=== PATIENT | male | born 1970 | race Caucasian/White ===

== ENCOUNTER 2016-09-11 09:47 | Emergency (ER) | payer MEDICARE ==
[2016-09-11] MEDS ORDERED: SODIUM CHLORIDE 0.9% 1,000 ML IV STA (10:25)
--- NOTE | 2016-09-11 10:26 | ED ---
General Adult HPI - General Chief complaint: Abdominal Pain Stated complaint: LOW O2, BULGE ON LEFT SIDE OF STOMACH Time Seen by Provider: 09/11/16 10:19 Source: patient, RN notes reviewed Mode of arrival: ambulatory Limitations: no limitations - History of Present Illness Initial comments: Patient 46-year-old male who presents emergency room today with chief complaint of left-sided abdominal pain over the last 3 weeks. He does admit to a constant "pressure" to left lower quadrant. Patient states he feels more when he try to go to the bathroom. He does admit to a history of constipation due to opiates. He states he no longer takes opiates but does medical marijuana. She has not had a problem with constipation since. States he feels some of the symptoms are similar. He states he has had bowel movements but feels like he is maybe not completely emptying. He admits that he felt nauseous 2 days ago. He denies any other complaints or symptoms. Patient denies any recent fever, chills, shortness of breath, chest pain, vomiting, numbness or tingling, dysuria or hematuria, constipation or diarrhea, headaches or visual changes, or any other complaints. - Related Data Home Medications Medication Instructions Recorded Confirmed No Known Home Medications [No 09/11/16 09/11/16 Known Home Medications] Allergies Allergy/AdvReac Type Severity Reaction Status Date / Time No Known Allergies Allergy Verified 09/11/16 10:57 Review of Systems ROS Statement: Those systems with pertinent positive or pertinent negative responses have been documented in the HPI. ROS Other: All systems not noted in ROS Statement are negative. Past Medical History Additional Past Medical History / Comment(s): medical marijuana for sciatic nerve damage History of Any Multi-Drug Resistant Organisms: None Reported Additional Past Surgical History / Comment(s): spine stimulator, nerve damage Past Psychological History: No Psychological Hx Reported Smoking Status: Current every day smoker Past Alcohol Use History: None Reported Past Drug Use History: Marijuana General Exam - General Exam Comments Initial Comments: General: The patient is awake and alert, in no distress, and does not appear acutely ill. Eye: Pupils are equal, round and reactive to light, extra-ocular movements are intact. No nystagmus. There is normal conjunctiva bilaterally. No signs of icterus. Ears, nose, mouth and throat: There are moist mucous membranes and no oral lesions. Neck: The neck is supple, there is no tenderness or JVD. Cardiovascular: There is a regular rate and rhythm. No murmur, rub or gallop is appreciated. Respiratory: Lungs are clear to auscultation, respirations are non-labored, breath sounds are equal. No wheezes, stridor, rales, or rhonchi. Gastrointestinal: Soft, non-distended, non-tender abdomen without masses or organomegaly noted. There is no rebound or guarding present. No CVA tenderness. Bowel sounds are unremarkable. Musculoskeletal: Normal ROM, no tenderness. Strength 5/5. Sensation intact. Pulses equal bilaterally 2+. Neurological: A&O x 3. CN II-XII intact, There are no obvious motor or sensory deficits. Coordination appears grossly intact. Speech is normal. Skin: Skin is warm and dry and no rashes or lesions are noted. Psychiatric: Cooperative, appropriate mood & affect, normal judgment. Limitations: no limitations Course Vital Signs 09/11/16 09/11/16 09:58 11:11 Temperature 98.3 F 97.7 F Pulse Rate 76 93 Respiratory 20 18 Rate Blood Pressure 126/73 118/70 O2 Sat by Pulse 94 L 93 L Oximetry Medical Decision Making - Medical Decision Making Patient reexamined at this time shows no signs of distress. Patient's labs been reviewed mildly elevated white count 11,000. Remaining labs unremarkable. Patient resting comfortably. Abdomen is soft nontender. CT of the abdomen and pelvis performed does show a colitis. Patient will be discharged given family and GI to follow-up with. Advised return if any symptoms increase or any other concerns. - Lab Data Result diagrams: 09/11/16 10:50 09/11/16 10:50 Lab Results 09/11/16 09/11/16 09/11/16 Range/Units 10:50 10:50 10:50 WBC 11.9 H (3.8-10.6) k/uL RBC 4.79 (4.30-5.90) m/uL Hgb 15.2 (13.0-17.5) gm/dL Hct 43.7 (39.0-53.0) % MCV 91.2 (80.0-100.0) fL MCH 31.8 (25.0-35.0) pg MCHC 34.9 (31.0-37.0) g/dL RDW 12.7 (11.5-15.5) % Plt Count 267 (150-450) k/uL Neutrophils % 74 % Lymphocytes % 13 % Monocytes % 9 % Eosinophils % 1 % Basophils % 1 % Neutrophils # 8.8 H (1.3-7.7) k/uL Lymphocytes # 1.6 (1.0-4.8) k/uL Monocytes # 1.0 (0-1.0) k/uL Eosinophils # 0.1 (0-0.7) k/uL Basophils # 0.1 (0-0.2) k/uL Sodium 140 (137-145) mmol/L Potassium 3.8 (3.5-5.1) mmol/L Chloride 99 (98-107) mmol/L Carbon Dioxide 29 (22-30) mmol/L Anion Gap 12 mmol/L BUN 16 (9-20) mg/dL Creatinine 0.93 (0.66-1.25) mg/dL Est GFR (MDRD) Af Amer >60 (>60 ml/min/1.73 sqM) Est GFR (MDRD) Non-Af >60 (>60 ml/min/1.73 sqM) Glucose 95 (74-99) mg/dL Calcium 9.6 (8.4-10.2) mg/dL Total Bilirubin 1.0 (0.2-1.3) mg/dL AST 24 (17-59) U/L ALT 19 L (21-72) U/L Alkaline Phosphatase 66 (38-126) U/L Total Protein 8.3 H (6.3-8.2) g/dL Albumin 4.7 (3.5-5.0) g/dL Amylase 79 (30-110) U/L Lipase 40 (23-300) U/L Urine Color Yellow Urine Appearance Cloudy (Clear) Urine pH 5.5 (5.0-8.0) Ur Specific [place] 1.032 (1.001-1.035) Urine Protein 1+ H (Negative) Urine Glucose (UA) Negative (Negative) Urine Ketones Negative (Negative) Urine Blood Moderate H (Negative) Urine Nitrite Negative (Negative) Urine Bilirubin Negative (Negative) Urine Urobilinogen 2.0 (<2.0) mg/dL Ur Leukocyte Esterase Negative (Negative) Urine RBC 3 (0-5) /hpf Urine WBC 1 (0-5) /hpf Urine Bacteria Rare H (None) /hpf Urine Mucus Moderate H (None) /hpf Disposition Clinical Impression: Colitis Disposition: HOME SELF-CARE Condition: Good Instructions: Colitis (ED) Additional Instructions: Please use medication as discussed. Please follow-up with family doctor/GI in the next 2 days of symptoms have not improved. Please return to emergency room if the symptoms increase or worsen or for any other concerns. Referrals: None,Stated [Primary Care Provider] - 1-2 days Jesus Crow MD [STAFF PHYSICIAN] - 1-2 days Ester Johnson MD [REFERRING] - 1-2 days Raven Darden MD [STAFF PHYSICIAN] - 1-2 days Time of Disposition: 13:10
[2016-09-11 10:59] LABS: Appearance,Urine Cloudy (Clear); Bacteria,Urine Rare /hpf; Bilirubin,Urine Negative (Negative); Glucose,Urine (UA) Negative (Negative); Ketones,Urine Negative (Negative); Leukocyte Esterase,Urine Negative (Negative); Mucus,Urine Moderate /hpf; Nitrite,Urine Negative (Negative); PH, Urine 5.5 (5.0-8.0); Particle Count 14177; Protein,Urine 1+ (Negative); RBC,Urine 3 /hpf (0-5); Specific Gravity,Urine 1.032 (1.001-1.035); UA Billing (MACRO vs. MICRO) MICRO; WBC,Urine 1 /hpf (0-5)
[2016-09-11 11:01] LABS: Basophils # (A) 0.1 k/uL (0-0.2); Basophils % (A) 1 %; CH 31.2; CHCM 34.4; Eosinophils # (A) 0.1 k/uL (0-0.7); Eosinophils % (A) 1 %; HCT 43.7 % (39.0-53.0); HGB 15.2 gm/dL (13.0-17.5); Luc # (Auto) 0.34; Luc % (Auto) 3; Lymphocytes # (A) 1.6 k/uL (1.0-4.8); Lymphocytes % (A) 13 %; MCH 31.8 pg (25.0-35.0); MCHC 34.9 g/dL (31.0-37.0); MCV 91.2 fL (80.0-100.0); Mean Platelet Volume 6.6; Monocytes % (A) 9 %; Neutrophils # (A) 8.8 k/uL (1.3-7.7); Neutrophils % (A) 74 %; RBC 4.79 m/uL (4.30-5.90); RDW 12.7 % (11.5-15.5); WBC 11.9 k/uL (3.8-10.6)
[2016-09-11 11:11] LABS: ALT 19 U/L (21-72); AST 24 U/L (17-59); Alkaline Phosphatase 66 U/L (38-126); Amylase 79 U/L (30-110); Anion Gap 12 mmol/L; Blood Urea Nitrogen 16 mg/dL (9-20); Calcium 9.6 mg/dL (8.4-10.2); Carbon Dioxide 29 mmol/L (22-30); Chloride 99 mmol/L (98-107); Glucose 95 mg/dL (74-99); Non-African American GFR(MDRD) >60 (>60 ml/min/1.73 sqM); Potassium 3.8 mmol/L (3.5-5.1); Sodium 140 mmol/L (137-145); Total Protein 8.3 g/dL (6.3-8.2)
--- NOTE | 2016-09-11 11:18 | XR ---
EXAMINATION TYPE: XR KUB DATE OF EXAM: 09/11/2016 10:57 AM CLINICAL HISTORY: Left lower quadrant pain for 3 to 4 weeks with nausea. TECHNIQUE: 2 upright KUB images of the abdomen are obtained COMPARISON: Abdominal x-ray series December 02, 2011. FINDINGS: Scattered gas is seen in non-distended small bowel loops. Gas and fecal material is seen in non-distended colon. Spinal stimulator device is stable. Lung bases are clear. No pneumoperitoneum or suspicious calcification is identified. Osseous structures are intact. IMPRESSION: Overall nonobstructive bowel gas pattern.
[2016-09-11] MEDS ORDERED: RX INFO: IV CONTRAST WAS GIVEN 1 EACH MISC MISCELLANE PRN (11:29)
--- NOTE | 2016-09-11 12:30 | CT ---
EXAMINATION TYPE: CT abdomen pelvis w con DATE OF EXAM: 09/11/2016 12:17 PM COMPARISON: NONE HISTORY: Left sided abdominal pain for 3-[address] DLP: 1137 mGycm, Automated Exposure Control for Dose Reduction was Utilized. CONTRAST: CT scan of the abdomen and pelvis is performed with oral and with IV Contrast, patient injected with 100 mL of Omnipaque 300. FINDINGS: LUNG BASES: Some bleb formation anteriorly in both lungs is seen. There is patchy reticular infiltrat e or scarring lateral right middle lobe on the most superior axial images. LIVER/GB: No significant abnormality is appreciated. PANCREAS: No significant abnormality is seen. SPLEEN: There is 1 cm splenule inferiorly in splenic hilum. ADRENALS: No significant abnormality is seen. KIDNEYS: There are 2 simple appearing small cyst upper pole level left kidney. BOWEL: Evaluation bowel is suboptimal secondary to lack of enteric contrast. There is no suspicious s mall or large bowel dilatation seen. Normal-appearing appendix is seen from cecum. There is mild wall thickening in the sigmoid colon, this could be product of poor distention but a colitis needs to BE excluded clinically. PROSTATE/SEMINAL VESICLES: No gross abnormality seen. LYMPH NODES: No greater than 1cm abdominal or pelvic lymph nodes are appreciated. OSSEOUS STRUCTURES: No significant abnormality is seen. OTHER: There is stimulator type device posterior left gluteal region. The leads enter the spinal parul l in the lower thoracic spine. IMPRESSION: No bowel obstruction is seen. Possible mild distal colitis, clinical correlation advised otherwise no significant acute finding is seen to account for patient's symptoms.
[2016-09-11 13:46] VITALS: BP 128/69; PULSE 64; RESP 16; TEMP 97.9
== END 2016-09-11 13:44 | disposition home or self-care (01) ==
LOC: EC 09:47
DX: K52.9 Noninfective gastroenteritis and colitis, unspecified (principal); D72.829 Elevated white blood cell count, unspecified; F17.200 Nicotine dependence, unspecified, uncomplicated
CPT/HCPCS: 36415; 80053; 82150; 83690; 85025; 81001; 74000; 74177; 99284; 96360; 96361 ×2; Q9967

== ENCOUNTER 2016-11-04 07:58 | Day surgery (SDC) | payer MEDICARE ==
[2016-11-03 09:21] VITALS: BMI 23.8
[2016-11-04 08:24] VITALS: TEMP 97.3
[2016-11-04] MEDS: LACTATED RINGERS 1,000 ML IV SCH ×2 (08:31→09:32)
[2016-11-04] MEDS ORDERED: LIDOCAINE 1% 20 ML VIAL (10MG/ML) FOR IV START INTRADERMA ONE (08:32)
[2016-11-04] MEDS ORDERED: LIDOCAINE 1% INJ 10MG/ML (20 ML MDV) ONE (09:38)
[2016-11-04] MEDS ORDERED: PROPOFOL 10 MG/ML 20 ML VIAL IV ONE (09:38)
--- NOTE | 2016-11-04 10:17 | P.PCN ---
Date of Procedure: 11/04/16 Preoperative Diagnosis: Postoperative Diagnosis: Procedure(s) Performed: Procedure: Colonoscopy and biopsy. Preoperative diagnosis: Change in bowel habits. Postoperative diagnosis: Diminutive polyp in the distal sigmoid biopsied, otherwise, exam to the cecum within normal limits. Preparation: HalfLytely prep. Sedation: Was provided by anesthesia. Brief clinical history: The patient is a 46-year-old male who I have evaluated in the office last month because of alternating bowel habits that he has been having since June of this year. A CT of the abdomen showed possible colitis. The patient had history of constipation over the years when he was on narcotics for left sciatica between 2002 and 2009. He had a spinal cord stimulator placed in December 2009 and that helped him get off narcotics. There is no family history of colon cancer. No bleeding. This would be his first colonoscopy. Procedure: With the patient on his left lateral decubitus position and after informed consent and adequate sedation, the perianal area was inspected and it did not show any fissures or fistulas. There were no masses felt on digital rectal examination. The Olympus CFQ 160L video colonoscope was then inserted in the rectum in the usual fashion and advanced to the cecum. The mucosa appeared healthy. No significant polyps or tumors were seen. No obvious diverticular disease or other pathology. There was a diminutive polyp in the distal sigmoid which I biopsied. No other findings to account for his symptoms. The patient tolerated the procedure well. Plan: The patient was reassured. Discussed dietary measures. I will consider repeat colonoscopy at age 51 especially if the polyp biopsied proved to be adenomatous. He will follow up with you as planned and I will be happy to see in the office in his symptoms do not improve. Implants: Indications for Procedure: Operative Findings: Description of Procedure:
[2016-11-04 10:43] VITALS: BP 121/67; PULSE 68; RESP 20
== END 2016-11-04 10:52 | disposition home or self-care (01) ==
LOC: ORWHC2ENDO 07:58
DX: K63.5 Polyp of colon (principal); J44.9 Chronic obstructive pulmonary disease, unspecified; F17.200 Nicotine dependence, unspecified, uncomplicated
CPT/HCPCS: 88305; 45380; J2001; J2704

== ENCOUNTER 2017-06-29 12:51 | Inpatient (IN) | payer MEDICARE ==
--- NOTE | 2017-06-29 15:46 | ED ---
Eye Problem HPI - General Chief complaint: Eye Problems Stated complaint: Double Vision Time Seen by Provider: 06/29/17 14:54 Source: patient Mode of arrival: ambulatory Limitations: no limitations - History of Present Illness Initial comments: 47 yoM presenting with blurred vision. Patient states last Thursday evening he had a mild HAINES that was sharp and stabbing. He denies vision changes or focal weakness at that time. Patient states he awoke that morning and had double vision he characterized as seeing objects double horizontally. Patient states he saw his lead mechanical engineer who recommended that he get glasses and also have an MRI done. Patient called his neurosurgeon who placed a new spinal stimulator in him some months ago, but he recommended he been seen by a primary care physician or go to the ED. He denies any further headache and states that this morning the double vision has now progressed of blurry vision. He states it improves if he closes one eye, however it does not matter which eye he closes. Denies focal weakness or numbness. Denies previous CVA or TIA. Denies daily ETOH use, history of bleeding problems, or head trauma. Denies F/C, CP/SOB, N/V/D. Patient does not have a PCP or neurologist. - Related Data Home Medications Medication Instructions Recorded Confirmed No Known Home Medications [No 09/11/16 06/29/17 Known Home Medications] Allergies Allergy/AdvReac Type Severity Reaction Status Date / Time No Known Allergies Allergy Verified 06/29/17 15:10 Review of Systems ROS Statement: Those systems with pertinent positive or pertinent negative responses have been documented in the HPI. ROS Other: All systems not noted in ROS Statement are negative. Constitutional: Denies: fever, chills Eyes: Reports: vision change. Denies: eye pain, eye discharge Respiratory: Denies: cough, dyspnea Cardiovascular: Denies: chest pain Gastrointestinal: Denies: abdominal pain, nausea, vomiting, diarrhea Neurological: Reports: headache. Denies: weakness, numbness, paresthesias, confusion, abnormal gait, vertigo Hematological/Lymphatic: Denies: easy bleeding Past Medical History Past Medical History: COPD Additional Past Medical History / Comment(s): medical marijuana for sciatic nerve damage History of Any Multi-Drug Resistant Organisms: None Reported Past Surgical History: Back Surgery, Hernia Repair Additional Past Surgical History / Comment(s): spine stimulator INSERTION IN BACK Past Anesthesia/Blood Transfusion Reactions: Motion Sickness, Postoperative Nausea & Vomiting (PONV) Past Psychological History: No Psychological Hx Reported Smoking Status: Former smoker Past Alcohol Use History: Occasional Past Drug Use History: Marijuana - Past Family History Mother Family Medical History: No Reported History General Exam Limitations: no limitations General appearance: alert, in no apparent distress Head exam: Present: atraumatic, normocephalic Eye exam: Present: normal appearance, PERRL, EOMI (horizontal fatiguable nystagmus bilaterally ), nystagmus. Absent: scleral icterus, conjunctival injection, periorbital swelling, periorbital tenderness Pupils: Present: normal accommodation. Absent: unequal, miosis, mydriatic ENT exam: Present: mucous membranes moist, TM's normal bilaterally Neck exam: Present: full ROM Respiratory exam: Present: normal lung sounds bilaterally Cardiovascular Exam: Present: regular rate Neurological exam: Present: alert, oriented X3, other (Intention tremor ). Absent: abnormal gait, motor sensory deficit Psychiatric exam: Present: normal affect, normal mood Skin exam: Present: warm, dry Course Vital Signs 06/29/17 13:15 Temperature 98.4 F Pulse Rate 71 Respiratory 18 Rate Blood Pressure 135/93 O2 Sat by Pulse 97 Oximetry Medical Decision Making - Medical Decision Making 47 yoM presenting with blurred visionl. On initial exam the patient is awake, alert, and in NAD. VSS. Patient has an intention tremor on exam which he states is baseline for him. He is nontoxic appearing. He exhibits or focal weakness, sensory deficit, cranial nerve deficit, or coordination deficit on exam. CT showed a possible remote lacunar infarct. Discussed with patient the concern for a CVA. 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 Patient requires admission for CVA workup. Spoke with Dr. Resendez who is agreeable to admission. Patient states his spinal stimulator is not compatible with MRI and he was told he would need a CT myelogram. Neurology consulted. Patient is currently stable for transfer to the floor. - Radiology Data Radiology results: report reviewed, image reviewed Disposition Clinical Impression: CVA (cerebral vascular accident) Disposition: ADMITTED IP TO THIS [facility] Condition: Good Referrals: None,Stated [Primary Care Provider] - 1-2 days Decision Date: 06/29/17 Decision Time: 16:56
--- NOTE | 2017-06-29 16:17 | CT ---
EXAMINATION TYPE: CT brain wo con DATE OF EXAM: 06/29/2017 COMPARISON: NONE HISTORY: Double vision x1 week. CT DLP: 1147 mGycm. Automated Exposure Control for Dose Reduction was Utilized. TECHNIQUE: CT scan of the head is performed without contrast. FINDINGS: The basilar artery is slightly prominent in comparison to the middle cerebral arteries alth ough there is no focal aneurysmal outpouching identified. Focal area of hypoattenuation within the ri ght lateral doug could relate to focal prior lacunar injury. There is no acute intracranial hemorrh age, mass effect, or midline shift identified. The ventricles and sulci are within normal limits in size. No suspicious extra-axial fluid collection. The globes are intact. There is circumferential muc osal thickening in the right maxillary sinus and mild mucosal thickening of the left maxillary sinus. Moderate mucosal thickening of the ethmoid sinuses and sphenoid sinuses are seen. Frontal sinuses ar e well aerated. Left-sided phan bullosa is incidentally noted. Visualized portions of the mastoid a ir cells are well aerated. Incidental note is made of a partially empty sella turcica. IMPRESSION: 1. No acute intracranial hemorrhage, mass effect, or midline shift is seen. 2. Possible remote lacunar injury of the right lateral doug. 3. 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 4. Moderate to severe paranasal sinus disease.
[2017-06-29] MEDS ORDERED: ASPIRIN 325 MG TAB PO STA (16:49)
[2017-06-29 17:34] LABS: HCT 42.6 % (39.0-53.0); HGB 14.2 gm/dL (13.0-17.5); MCH 29.7 pg (25.0-35.0); MCHC 33.4 g/dL (31.0-37.0); MCV 88.8 fL (80.0-100.0); Mean Platelet Volume 6.9; Platelet Count 301 k/uL (150-450); RDW 12.8 % (11.5-15.5)
[2017-06-29 17:52] LABS: ALT 22 U/L (21-72); AST 23 U/L (17-59); Albumin 4.7 g/dL (3.5-5.0); Alkaline Phosphatase 82 U/L (38-126); Anion Gap 14 mmol/L; Blood Urea Nitrogen 18 mg/dL (9-20); Calcium 10.2 mg/dL (8.4-10.2); Carbon Dioxide 25 mmol/L (22-30); Chloride 101 mmol/L (98-107); Glucose 81 mg/dL (74-99); Sodium 140 mmol/L (137-145); Total Bilirubin 0.6 mg/dL (0.2-1.3); Total Protein 8.3 g/dL (6.3-8.2)
[2017-06-29] MEDS: KETOROLAC 30 MG/ML 1 ML VIAL IVP SCH (20:42)
--- NOTE | 2017-06-29 20:47 | P.CNNES ---
History of Present Illness Consult date: 06/29/17 Reason for Consult: Patient with double vision and possible stroke. History of Present Illness: This patient is a 47-year-old right-handed white male who was admitted through the emergency room today for evaluation of diplopia. The patient states that his symptoms began a week ago. He woke up with a slight headache and following that had horizontal diplopia. He went to see an chainsaw mechanic on of last week for this condition and she was recommending that he should have an MRI done. The patient then contacted his neurosurgeon Dr. Grubbs with whom he follows as he has a history of back surgery done in 2002 with chronic back pain symptoms. He had a nerve stimulator placed into the lumbar spine region and 2009 and was recently replaced in 2016. He follows with his neurosurgeon only as needed. Apparently he contacted his neurosurgeon to see if he could get a prescription to have MRI done of the brain. His neurosurgeon recommended he go to his primary care physician or to the ER. Patient was brought into the ER today and was seen in the ER by Dr. Mosqueda. He was sent for a computed tomography scan of the brain. CAT scan the brain revealed a possible lacunar infarct involving the right doug. Was felt to be either chronic or subacute. 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 The patient was then advised admission for further evaluation of stroke. Apparently he is unable to have an MRI of the brain due to his nerve stimulator implant in the back. We will try to find out as he does have a card to see if he is possible to have MRI of the brain only. The patient states his double vision did resolve today and he is surprised that the symptoms have significantly improved. He was advised by his conveyor mechanic to use special prism glasses as there was obvious evidence of diplopia when he was seen last . His clinical history suggests possibility of pontine infarct possibly producing his initial diplopia. We are recommending that he be seen by ophthalmology for further evaluation. We will attempt to get an MRI of the brain if it is compatible with his nerve stimulator. We reviewed all of these findings today with the patient in detail. Neurology is now been consulted for further evaluation and recommendations. Review of Systems Constitutional: Denies chills, Denies fever Eyes: denies blurred vision, denies diplopia, denies pain Ears, nose, mouth and throat: Denies headache, Denies sore throat Cardiovascular: Denies chest pain, Denies shortness of breath Respiratory: Denies cough Gastrointestinal: Denies abdominal pain, Denies diarrhea, Denies nausea, Denies vomiting Musculoskeletal: Denies myalgias Integumentary: Denies pruritus, Denies rash Neurological: Reports double vision, Denies numbness, Denies weakness Psychiatric: Denies anxiety, Denies depression Endocrine: Denies fatigue, Denies weight change Past Medical History Past Medical History: COPD Additional Past Medical History / Comment(s): medical marijuana for sciatic nerve damage History of Any Multi-Drug Resistant Organisms: None Reported Past Surgical History: Back Surgery, Hernia Repair Additional Past Surgical History / Comment(s): spine stimulator INSERTION IN BACK Past Anesthesia/Blood Transfusion Reactions: Motion Sickness, Postoperative Nausea & Vomiting (PONV) Past Psychological History: No Psychological Hx Reported Smoking Status: Former smoker Past Alcohol Use History: Occasional Past Drug Use History: Marijuana - Past Family History Mother Family Medical History: No Reported History Medications and Allergies Home Medications Medication Instructions Recorded Confirmed Type No Known Home Medications [No 09/11/16 06/29/17 History Known Home Medications] Allergies Allergy/AdvReac Type Severity Reaction Status Date / Time No Known Allergies Allergy Verified 06/29/17 15:10 Physical Examination - Vital Signs Vital Signs: Vital Signs Temp Pulse Pulse Resp BP BP Pulse Ox 06/29/17 20:00 98.3 F 73 18 145/77 95 06/29/17 19:00 82 18 126/56 06/29/17 18:00 74 18 136/83 06/29/17 17:00 98.3 F 87 20 138/89 96 06/29/17 15:15 71 18 140/65 99 06/29/17 13:15 98.4 F 71 18 135/93 97 Intake and Output 06/29/17 06/29/17 06/29/17 06:59 14:59 22:59 Other: Weight 70.307 kg Patient Weight 06/30/17 06:59 Weight 70.307 kg - Constitutional General appearance: average body habitus, cooperative - EENT EENT: PERRL, mucous membranes moist - Respiratory Respiratory: lungs clear, normal breath sounds - Cardiovascular Cardiovascular: regular rate, normal S1, normal S2 Extremities: no peripheral edema bilaterally - Gastrointestinal Gastrointestinal: normoactive bowel sounds - Integumentary Integumentary: normal - Neurologic Cranial nerve examination: PERRL, EOMI, VFF, V1/V2/V3 grossly intact, face symmetric, tongue midline, intact gag reflex, intact corneal reflex, normal palatal elevation Speech examination: intact Sensorimotor examination: intact Detailed motor examination: grossly full strength in all extremities Motor examination - right side: 4/5: biceps, triceps, wrist flexion, wrist extension, door to door selling distributor, hip flexors, knee extensors, dorsiflexion, toe extension (EHL) , plantarflexion Motor examination - left side: 4/5: biceps, triceps, wrist flexion, wrist extension, door to door selling distributor, hip flexors, knee extensors, dorsiflexion, toe extension (EHL) , plantarflexion Detailed sensory examination: intact Reflex and gait examination: intact Reflexes: 1+: ankle, bicep, knee, tricep - Musculoskeletal Musculoskeletal: no pain - Psychiatric Psychiatric: mood/affect appropriate, cooperative Results - Laboratory Findings CBC and BMP: 06/29/17 17:20 06/29/17 17:20 Abnormal Lab Findings: Abnormal Labs 06/29/17 17:20 Total Protein 8.3 H Assessment and Plan (1) Right pontine stroke Current Visit: Yes Status: Acute Code(s): I63.50 - CEREB INFRC DUE TO UNSP OCCLS OR STENOS OF UNSP CEREB ARTERY SNOMED Code(s): 470517761 (2) Diplopia Current Visit: Yes Status: Acute Code(s): H53.2 - DIPLOPIA SNOMED Code(s) : 91661483 (3) Previous back surgery Current Visit: Yes Status: Acute Code(s): Z98.890 - OTHER SPECIFIED POSTPROCEDURAL STATES SNOMED Code(s): 353341229 Plan: This patient is a 47-year-old male who presents with a one-week history of horizontal diplopia. He went to see an conveyor mechanic last and was advised to have an MRI of the brain. He was prescribed prism glasses. He has been evaluated by his neurosurgeon as he has a history of chronic low back pain following back surgery in 2002. He has a lumbar nerve stimulator in place which is monitored by his neurosurgeon Dr. Grubbs. Patient underwent computed tomography scan of the brain which reveals a right pontine infarct. Exact age of the infarct is unknown but is felt to be subacute or chronic. It is unclear if the patient can undergo MRI of the brain due to his nerve stimulator but this would be recommended if possible. We are recommending a complete stroke evaluation for the patient. We'll obtain a carotid Doppler ultrasound as well. Patient should be maintained on aspirin daily for secondary stroke prevention. We will obtain an ophthalmology consultation as well for their further evaluation and recommendations. This patient's overall prognosis at this time remains very guarded. We will continue to follow his neurological course closely during this admission. Time with Patient: Greater than 30
[2017-06-29 21:43] VITALS: BMI 22.8
[2017-06-29 22:09] VITALS: RESP 16
[2017-06-29] MEDS: HYDROcodone/APAP 5-325MG 1 EACH TAB PO PRN (22:26)
--- NOTE | 2017-06-29 23:29 | P.HPIM ---
History of Present Illness H&P Date: 06/29/17 Chief Complaint: Double vision Patient is a 47-year-old male with a known history of chronic back pain and spinal stimulator placement in 2002 came to ER with complaints of double vision and blurry vision.. Patient says that he has been having double vision started last Thursday and also he developed headache on Thursday. Patient went to see his cephalometric tracer on and recommended to have MRI done. Patient also called his neurosurgeon who recommended to see his primary care physician or go to ER. Patient had CT head was done showed right pontine subacute/chronic stroke. Apparently MRI could not be done due to patient having never stimulator. Patient says that his vision is getting better compared to a week ago. Denies focal weakness or numbness. Denies previous CVA or TIA. Denies daily ETOH use, history of bleeding problems, or head trauma. Denies F/C, CP/SOB, N/V/ D. Patient does not have a PCP or neurologist. Review of Systems Constitutional: Patient denies any fever or chills . No generalized weakness or weight loss. Abdomen: Patient denied nausea vomiting and diarrhea and abdominal pain. Cardiovascular: Patient denies any chest pain or short of breath no palpitations. Respiratory: patient denied any cough is from production. No shortness of breath Neurologic: Patient denied any numbness or tingling headache. Blurry vision Musculoskeletal: Patient denies any complaints of joint swelling or deformity. Skin: Negative Psychiatric: Negative Endocrine: No heat or cold intolerance. No recent weight gain. Genitourinary: No dysuria or hematuria. All other 14 point ROS negative except the above Past Medical History Past Medical History: COPD Additional Past Medical History / Comment(s): medical marijuana for sciatic nerve damage History of Any Multi-Drug Resistant Organisms: None Reported Past Surgical History: Back Surgery, Hernia Repair Additional Past Surgical History / Comment(s): spine stimulator INSERTION IN BACK Past Anesthesia/Blood Transfusion Reactions: Motion Sickness, Postoperative Nausea & Vomiting (PONV) Past Psychological History: No Psychological Hx Reported Smoking Status: Former smoker Past Alcohol Use History: Occasional Past Drug Use History: Marijuana - Past Family History Mother Family Medical History: No Reported History Medications and Allergies Home Medications Medication Instructions Recorded Confirmed Type No Known Home Medications [No 09/11/16 06/29/17 History Known Home Medications] Allergies Allergy/AdvReac Type Severity Reaction Status Date / Time No Known Allergies Allergy Verified 06/29/17 15:10 Physical Exam Vitals: Vital Signs Temp Pulse Resp BP Pulse Ox 06/29/17 13:15 98.4 F 71 18 135/93 97 Intake and Output 06/29/17 06/29/17 06/29/17 06:59 14:59 22:59 Other: Weight 70.307 kg Patient Weight 06/30/17 06:59 Weight 70.307 kg PHYSICAL EXAMINATION: Patient is lying in the bed comfortably, no acute distress, awake alert and oriented.. HEENT: Normocephalic. Neck is supple. Pupils reactive. Nostrils clear. Oral cavity is moist. Ears reveal no drainage. Neck reveals no JVD, carotid bruits, or thyromegaly. CHEST EXAMINATION: Trachea is central. Symmetrical expansion. Lung delcid clear to auscultation and percussion. CARDIAC: Normal S1, S2 with no gallops. No murmurs ABDOMEN: Soft. Bowel sounds normal. No organomegaly. No abdominal bruits. Extremities: reveal no edema. No clubbing or cyanosis Neurologically awake, alert, oriented x3 with well-coordinated movements. No focal deficits noted Skin: No rash or skin lesions. Psychiatric: Coperative. Nonsuicidal Musculoskeletal: No joint swelling or deformity. Normal range of motion. Results CBC & Chem 7: 06/29/17 17:20 06/29/17 17:20 Labs: Abnormal Lab Results - Last 24 Hours (Table) 06/29/17 Range/Units 17:20 Total Protein 8.3 H (6.3-8.2) g/dL Thrombosis Risk Factor Assmnt - DVT/VTE Prophylaxis DVT/VTE Prophylaxis: Pharmacologic Prophylaxis ordered Assessment and Plan Assessment: Subacute/chronic right pontine ischemic CVA Double vision/blurry vision Chronic back pain and sciatica pain and has never stimulator implant History of smoking quit 5 months ago Medical marijuana use DVT prophylaxis Plan: Patient be continued on telemetry monitoring. Aspirin was initiated. MRI is recommended but could not be done due to neurostimulator. Discussed with the patient in detail. Otherwise patient is symptomatically improving slowly. Continue the pain management and neurology evaluation. Carotid duplex was ordered. Further recommendations based on the clinical course. Time with Patient: Greater than 30
[2017-06-30] MEDS: KETOROLAC 30 MG/ML 1 ML VIAL IVP SCH ×4 (00:17→18:25)
[2017-06-30 03:28] LABS: Cholesterol 211 mg/dL (<200); HDL Cholesterol 82 mg/dL (40-60); LDL Cholesterol,Calculated 114 mg/dL (0-99); Triglycerides 77 mg/dL (<150)
[2017-06-30] MEDS: HYDROcodone/APAP 5-325MG 1 EACH TAB PO PRN ×3 (07:35→18:25)
[2017-06-30] MEDS ORDERED: ASPIRIN 325 MG TAB PO SCH (09:00)
--- NOTE | 2017-06-30 11:21 | US ---
EXAMINATION TYPE: US carotid duplex BILAT DATE OF EXAM: 06/30/2017 COMPARISON: NONE CLINICAL HISTORY: 47-year-old male with double vision for 6 days, Stenosis. TECHNIQUE: Carotid duplex ultrasound examination. In the right upper criteria utilized. FINDINGS: No significant atherosclerotic change at either bifurcation. EXAM MEASUREMENTS: RIGHT: Peak Systolic Velocity (PSV) cm/sec ----- Right CCA: 71.0 ----- Right ICA: 72.4 ----- Right ECA: 52.9 ICA/CCA ratio: 1.0 RIGHT: End Diastole cm/sec ----- Right CCA: 21.5 ----- Right ICA: 30.3 ----- Right ECA: 9.6 LEFT: Peak Systolic Velocity (PSV) cm/sec ----- Left CCA: 72.9 ----- Left ICA: 86.7 ----- Left ECA: 63.3 ICA/CCA ratio: 1.2 LEFT: End Diastole cm/sec ----- Left CCA: 18.8 ----- Left ICA: 22.0 ----- Left ECA: 11.9 VERTEBRALS (direction of flow): Right Vertebral: Antegrade Left Vertebral: Antegrade Rhythm: Normal IMPRESSION: No hemodynamically significant stenosis appreciated in either internal carotid artery. Criteria for Assigning % of Stenosis / Diameter reduction (Estimation based on the indirect measurements of the internal carotid artery velocities (ICA PSV). 1. Normal (no stenosis)=ICA PSV < 125 cm/s: ratio < 2.0: ICA EDV<40 cm/s. 2. Less than 50% stenosis=ICA PSV < 125 cm/s: ratio < 2.0: ICA EDV<40 cm/s. 3. 50 to 69% stenosis=ICA PSV of 125 to 230 cm/s: ration 2.0 ? 4.0: ICA EDV 40-100 cm/s. 4. Greater than 70% stenosis to near occlusion= ICA PSV > 230 cm/s: ratio > 4.0: ICA EDV > 100 cm/s. 5. Near occlusion= ICA PSV velocities may be low or undetectable: variable ratio and ICA EDV. 6. Total occlusion=unable to detect flow.
[2017-06-30 14:41] VITALS: TEMP 97.3
[2017-06-30 15:13] VITALS: BP 140/82; PULSE 79
--- NOTE | 2017-06-30 15:21 | CONS ---
CONSULTATION DATE OF SERVICE: 06/30/2017. HISTORY: This is a 47-year-old white male who was admitted yesterday through the emergency room for evaluation of diplopia. The patient stated that one week ago on June 22, he awoke in the morning with a slight headache and constant double vision. He called to find an eye doctor and ultimately made an appointment to be seen by a local wine cellar stock clerk at the [facility]. The patient was seen on June 24 by the wine cellar stock clerk who recommended that he obtain an MRI after going to an emergency room. The patient went home instead and called a neurologist who has been treating his chronic sciatic pain instead. Ultimately he presented on June 29 to [facility] and was admitted for his chronic symptoms of diplopia. The patient has obtained a CT scan which revealed a right pontine infarct. However, an MRI was not possible due to the hardware that is associated with the TENS stimulator. The patient states that when he woke up this morning, his symptoms of diplopia had resolved spontaneously and as of this morning, they have not recurred. Visual acuity with correction measured 20/20 bilaterally. The pupils were equal and reactive to light. There was no afferent defect. Extraocular movements were full in all gaze positions. The patient did not reveal any muscle imbalance, on ductions and version testing. On penlight exam the anterior segments were "clear and quiet" bilaterally. IMPRESSION: Diplopia. The patient's double vision has resolved and therefore evaluating to determine the cause is not possible at this time. I asked that old records from his visit to the wine cellar stock clerk will be forwarded to my office and a better understanding of what measurements were there and what possible treatment is going forward might be undertaken. As of now, intervention is not indicated or warranted and I asked that he follow up with me at my office upon discharge from the hospital. MMODL / IJN: [id number] /
[2017-06-30] MEDS ORDERED: ATORVASTATIN 20 MG TAB PO STA (19:20)
--- NOTE | 2017-06-30 19:46 | P.PN ---
Subjective Progress Note Date: 06/30/17 This patient is a 47 year old male who was seen yesterday for evaluation of diplopia. Patient had symptoms of diplopia one week ago on 06/22/2017. [place] with a slight headache at that time. Since that time he had diplopia and was referred by his neurosurgeon to go to the emergency room. He was subsequently evaluated in the optometrists office on June 24 recommended he have an MRI of the brain. The patient was admitted to hospital yesterday however his symptoms of diplopia did resolve. He is continues to experience blurring of vision. His optometrists had recommended prism glasses which she has yet to receive. The patient was unable to have MRI of the brain today as he has a neurostimulator in place. He was seen by ophthalmology today and Dr. Dickey. Dr. Dickey's examination was normal as patient has no evidence of diplopia at this time. He is to follow-up with him in the outpatient clinic in one week. The patient states he has been doing fine today. He still has had no recurrence of diplopia. His CAT scan of the brain did reveal evidence of a right pontine infarct. He underwent carotid Doppler study today which came back negative with no evidence of significant carotid artery stenosis. We are recommending that he continue on 1 aspirin daily for further stroke prevention. Patient is being considered for discharge home today. He may follow-up in the outpatient neurology clinic in 3-4 weeks. Objective - Vital Signs Vital signs: Vital Signs Temp 97.3 F L 06/30/17 14:34 Pulse 79 06/30/17 15:13 Resp 16 06/30/17 15:13 BP 140/82 06/30/17 15:13 Pulse Ox 98 06/30/17 14:34 Intake & Output 06/30/17 06/30/17 07/01/17 06:59 18:59 06:59 Intake Total 200 590 Balance 200 590 Weight 71 kg Intake: Oral 200 590 Other: Voiding Method Toilet # Voids 2 4 - Exam Physical Examination: PHYSICAL EXAMINATION: Patient is resting comfortably in bed. VITAL SIGNS: Blood pressure is [116/69]. Heart rate is [65]. Respiration is [16] . Temperature is [97.3]. HEENT: Head is atraumatic, neck is supple, there were no carotid bruits. CHEST: Lungs are clear to auscultation and percussion. CARDIAC: S1, S2 normal rate and rhythm. There is no murmur. ABDOMEN: Soft and nontender. Bowel sounds are present. EXTREMITIES: There is no pedal edema. Peripheral pulses are present. Neurological examination: Patient has a nonfocal neurological examination today. No evidence of disconjugate eye movements or diplopia on examination today. - Labs CBC & Chem 7: 06/29/17 17:20 06/29/17 17:20 Labs: Abnormal Lab Results - Last 24 Hours (Table) 06/29/17 Range/Units 17:20 Cholesterol 211 H (<200) mg/dL LDL Cholesterol, Calc 114 H (0-99) mg/dL HDL Cholesterol 82 H (40-60) mg/dL Assessment and Plan (1) Right pontine stroke Current Visit: Yes Status: Acute Code(s): I63.50 - CEREB INFRC DUE TO UNSP OCCLS OR STENOS OF UNSP CEREB ARTERY SNOMED Code(s): 119671208 (2) Diplopia Current Visit: Yes Status: Acute Code(s): H53.2 - DIPLOPIA SNOMED Code(s) : 78263562 (3) Previous back surgery Current Visit: Yes Status: Acute Code(s): Z98.890 - OTHER SPECIFIED POSTPROCEDURAL STATES SNOMED Code(s): 542201065 Plan: This patient is a 47-year-old male who was admitted to hospital with the initial episode of diplopia. He was seen today by ophthalmology and Dr. Dickey. His recommendations are that he has a normal exam and no further testing is required at this time. He is to be discharged and to follow-up in his clinic in one week. Patient underwent carotid Doppler study today which came back negative for any carotid artery stenosis. He has had no further recurrence of diplopia since admission. He is unable to go for MRI of the brain as he has a nerve stimulator in the back and cannot have MRI study done. His computed tomography scan of the brain did reveal evidence of a right pontine infarct. At this time we would recommend he continue on one aspirin therapy. He may follow-up with his extrusion supervisor as recommended. We would recommend for him to follow up in the outpatient neurology clinic in 3-4 weeks. Patient is being considered for discharge home today. His condition at the time of discharge is stable.
--- NOTE | 2017-06-30 22:41 | P.DS ---
Providers Date of admission: 06/29/17 16:49 Expected date of discharge: 06/30/17 Attending physician: Liza Resendez Consults: 06/29/17 16:51 Consult Physician Routine Consulting Provider: Judith Hernandez Consult Reason/Comments: CVA Do you want consulting provider notified?: Yes 06/30/17 08:00 Consult Physician Routine Consulting Provider: Ancelmo Dickey Consult Reason/Comments: Acute intermittent diplopia and pontine infarct. Do you want consulting provider notified?: Yes Primary care physician: Stated None Hospital Course: Discharge diagnosis Subacute/chronic right pontine ischemic CVA with double vision Double vision/blurry vision. Improved Chronic back pain and sciatica pain and has never stimulator implant History of smoking quit 5 months ago Medical marijuana use Hyperlipidemia DVT prophylaxis Hospital course Patient is a 47-year-old male with a known history of chronic back pain and spinal stimulator placement in 2002 came to ER with complaints of double vision and blurry vision.. Patient says that he has been having double vision started last Thursday and also he developed headache on Thursday. Patient went to see his clerical assigner on and recommended to have MRI done. Patient also called his neurosurgeon who recommended to see his primary care physician or go to ER. Patient had CT head was done showed right pontine subacute/chronic stroke. Apparently MRI could not be done due to patient having never stimulator. Patient says that his vision is getting better compared to a week ago. Denies focal weakness or numbness. Denies previous CVA or TIA. Denies daily ETOH use, history of bleeding problems, or head trauma. Denies F/C, CP/SOB, N/V/ D. Patient does not have a PCP or neurologist. \ 06/30/2017 Patient says that his blurry vision is better today. Otherwise patient was seen by of nidia as he and recommended to follow-up as an outpatient. Carotid duplex is negative for any hemodynamic stenosis. Patient otherwise is ambulating in the hallway. Stable to be discharged home. Patient be continued on aspirin and statins. Patient was continued on telemetry monitoring. EKG showed sinus bradycardia with heart rate of 58. Aspirin was initiated. MRI is recommended but could not be done due to neurostimulator. Discussed with the patient in detail. Otherwise patient is symptomatically improving slowly. Carotid duplex showed no significant stenosis.. Recommended to follow-up as an outpatient with neurology clinic and ophthalmology clinic in a week. Patient is stable to be discharged home. Discharge physical examination was done and vitals reviewed. Patient Condition at Discharge: Good Plan - Discharge Summary Discharge Rx Participant: No New Discharge Prescriptions: New Aspirin 325 mg PO DAILY #30 tab Atorvastatin Calcium [Lipitor] 20 mg PO HS #30 tab Discharge Medication List Aspirin 325 mg PO DAILY #30 tab 06/30/17 [Rx] Atorvastatin Calcium [Lipitor] 20 mg PO HS #30 tab 06/30/17 [Rx] Follow up Appointment(s)/Referral(s): Kirsty Hernandez MD [STAFF PHYSICIAN] - 3 Weeks (Please call office with follow up during normal business hours. ) Ancelmo Dickey MD [STAFF PHYSICIAN] - 1 Week (Please call office to schedule appointment during normal business hours. ) Patient Instructions/Handouts: Stroke (DC) Discharge Disposition: HOME SELF-CARE
== END 2017-06-30 19:48 | disposition home or self-care (01) | DRG 66 ==
LOC: EC 12:51 → 6SEL 16:49
PROVIDERS: ADMIT Internal Medicine; ATTEND Internal Medicine
DX: I63.9 Cerebral infarction, unspecified (principal); E78.5 Hyperlipidemia, unspecified; F12.90 Cannabis use, unspecified, uncomplicated; G25.2 Other specified forms of tremor; G89.29 Other chronic pain; H53.2 Diplopia; J44.9 Chronic obstructive pulmonary disease, unspecified; Z87.891 Personal history of nicotine dependence; M54.40 Lumbago with sciatica, unspecified side
CPT/HCPCS: 70450; 80053; 80061; 85027; 93880; 99284

== ENCOUNTER → 2017-12-22 | Outpatient (CLI) | payer OTHER ==
--- NOTE | 2017-12-22 09:34 | CT ---
EXAMINATION TYPE: CT brain wo con DATE OF EXAM: 12/22/2017 COMPARISON: 06/29/2017 INDICATION: History of a stroke DLP: 1094 mGycm, Automated exposure control for dose reduction was used. CONTRAST: 06/30/2019 CT of the brain is performed utilizing 3 mm thick sections through the posterior fossa and 3 mm thick sections through the remaining calvarium. Study is performed within 24 hours of arrival to the hosp [facility]. No abnormal hyperdensity is present to suggest an acute intracranial hemorrhage. No mass lesion is evident. Basilar artery prominence is stable. No acute infarcts are evident. Previous suspected brainstem infarct is not visualized on the current examination. Ventricles and sulci are appropriate for the patient age. Paranasal sinuses and mastoid air cells within the [id number] are clear. IMPRESSIONS: 1. No acute intracranial process. 2. Examination appears stable from 06/29/2017.
== END | disposition home or self-care (01) ==
LOC: RADCTMAIN 09:02
PROVIDERS: ATTEND Psychiatry & Neurology Neurology
DX: Z09 Encounter for follow-up examination after completed treatment for conditions other than malignant neoplasm (principal); Z86.73 Personal history of transient ischemic attack (TIA), and cerebral infarction without residual deficits
CPT/HCPCS: 70450

== ENCOUNTER 2018-01-01 22:47 | Emergency (ER) | payer MEDICARE ==
[2018-01-01] MEDS ORDERED: KETOROLAC 60 MG/2 ML VIAL IM STA (23:22)
[2018-01-01] MEDS ORDERED: ORPHENADRINE 30 MG/ML 2 ML VIAL IM STA (23:22)
--- NOTE | 2018-01-01 23:26 | ED ---
Back Pain HPI - General Chief Complaint: Back Pain/Injury Stated Complaint: back pain Time Seen by Provider: 01/01/18 23:01 Source: patient, family Limitations: physical limitation - History of Present Illness MD Complaint: back pain Onset/Timin -: days(s) Similar Symptoms Previously: Yes Place: home Radiation: left leg Severity: severe Quality: aching Consistency: constant Improves With: none Worsens With: movement Associated Symptoms: denies other symptoms - Related Data Previous Rx's Medication Instructions Recorded Methocarbamol [Robaxin-750] 750 mg PO TID PRN #30 tablet 01/02/18 Allergies Allergy/AdvReac Type Severity Reaction Status Date / Time No Known Allergies Allergy Verified 01/01/18 23:26 Review of Systems ROS Statement: Those systems with pertinent positive or pertinent negative responses have been documented in the HPI. ROS Other: All systems not noted in ROS Statement are negative. Constitutional: Denies: fever, weakness Respiratory: Denies: cough, dyspnea Cardiovascular: Denies: chest pain, palpitations Gastrointestinal: Denies: abdominal pain, vomiting, diarrhea, constipation Genitourinary: Denies: dysuria, testicular pain Musculoskeletal: Reports: as per HPI, back pain Neurological: Denies: weakness, numbness, paresthesias Past Medical History Past Medical History: COPD Additional Past Medical History / Comment(s): medical marijuana for sciatic nerve damage, back pain History of Any Multi-Drug Resistant Organisms: None Reported Past Surgical History: Back Surgery, Hernia Repair Additional Past Surgical History / Comment(s): spine stimulator INSERTION IN BACK Past Anesthesia/Blood Transfusion Reactions: Motion Sickness, Postoperative Nausea & Vomiting (PONV) Past Psychological History: No Psychological Hx Reported Smoking Status: Former smoker Past Alcohol Use History: Occasional Past Drug Use History: Marijuana - Past Family History Mother Family Medical History: No Reported History General Exam Limitations: no limitations General appearance: alert, in no apparent distress, other (Patient does have an underlying tremor) Head exam: Present: atraumatic, normocephalic Respiratory exam: Present: normal lung sounds bilaterally. Absent: respiratory distress, wheezes, rales, rhonchi, stridor Cardiovascular Exam: Present: regular rate, normal rhythm, normal heart sounds. Absent: systolic murmur, diastolic murmur, rubs, gallop GI/Abdominal exam: Present: soft. Absent: distended, tenderness, guarding, rebound, mass Back exam: Present: normal inspection, muscle spasm, paraspinal tenderness. Absent: CVA tenderness (R), CVA tenderness (L), vertebral tenderness Neurological exam: Present: reflexes normal. Absent: motor sensory deficit Skin exam: Present: warm, dry, intact, normal color. Absent: rash Course Vital Signs 01/01/18 22:56 Temperature 97.5 F L Pulse Rate 80 Respiratory 22 Rate Blood Pressure 155/78 O2 Sat by Pulse 98 Oximetry Disposition Clinical Impression: Lumbar radiculopathy Disposition: HOME SELF-CARE Condition: Fair Instructions: Chronic Back Pain (ED) Prescriptions: Methocarbamol [Robaxin-750] 750 mg PO TID PRN #30 tablet PRN Reason: pain Is patient prescribed a controlled substance at d/c from ED?: No Referrals: None,Stated [Primary Care Provider] - 1-2 days
[2018-01-02] MEDS ORDERED: MORPHINE SULFATE 4 MG/ML SYRINGE IV STA (01:04)
[2018-01-02 01:36] VITALS: BP 148/87; PULSE 78; RESP 20; TEMP 97.8
== END 2018-01-02 01:36 | disposition home or self-care (01) ==
LOC: EC 22:47
DX: M54.16 Radiculopathy, lumbar region (principal); Z98.890 Other specified postprocedural states; Z96.89 Presence of other specified functional implants; Z87.891 Personal history of nicotine dependence
CPT/HCPCS: 99283; 96374; 96372 ×2; J2270; J2360; J1885

== ENCOUNTER → 2018-01-14 | Outpatient (CLI) | payer MEDICARE | END | disposition home or self-care (01) | LOC: LABWHC1 10:39 | PROVIDERS: ATTEND Psychiatry & Neurology Neurology | DX: Z09 Encounter for follow-up examination after completed treatment for conditions other than malignant neoplasm (principal); Z86.69 Personal history of other diseases of the nervous system and sense organs | CPT/HCPCS: 36415 ==

== ENCOUNTER 2018-05-09 15:36 | Emergency (ER) | payer MEDICARE, OTHER ==
[2018-05-09 15:46] VITALS: BP 149/97; TEMP 98.3
[2018-05-09] MEDS ORDERED: KETOROLAC 60 MG/2 ML VIAL IM STA (16:11)
[2018-05-09] MEDS ORDERED: HYDROcodone/APAP 5-325MG 1 EACH TAB PO STA (16:41)
--- NOTE | 2018-05-09 16:53 | ED ---
General Adult HPI - General Chief complaint: Back Pain/Injury Stated complaint: Back pain Source: patient, RN notes reviewed, old records reviewed Mode of arrival: ambulatory Limitations: no limitations - History of Present Illness Initial comments: 47-year-old male patient past medical history of chronic lumbar back pain for approximately 13 years. Patient has had a previous laminectomy on his L4-L5. Patient presents to ER today because he has had a exacerbation of his chronic lumbar back pain this morning. Patient denies any recent falls or trauma. Patient states that the pain radiates down his left leg. Patient states that this is normal for patient. Patient denies any new or concerning symptoms including loss of bowel or bladder control, paresthesias, lower extremity weakness. Patient states that he now has a spine stimulator in his lumbar spine. Patient does not take any pain medications for his chronic back pain. Patient was previously on narcotic pain medication in the past, no longer is on this. Patient presents today in order to have symptomatic treatment of his chronic back pain. Patient denies any other symptoms. Patient denies chest pain, shortness breath, abdominal pain, nausea vomiting diarrhea, fever chills, IV drug use. Patient is ambulatory. Systemic: Pt denies fatigue, myalgia, fever/chills, rash. Pt denies weakness, night sweats, weight loss. Neuro: Pt denies headache, visual disturbances, syncope or pre-syncope. HEENT: Pt denies ocular discharge or irritation, otalgia, rhinorrhea, pharyngitis or notable lymphadenopathy. Cardiopulmonary: Pt denies chest pain, SOB, heart palpitations, dyspnea on exertion. Abdominal/GI: Pt denies abdominal pain, n/v/d. : Pt denies dysuria, burning w/ urination, frequency/urgency. Denies new onset urinary or bowel incontinence. MSK: Pt denies loss of strength or function in extremities. Neuro: Pt denies new onset weakness, paresthesias. - Related Data Previous Rx's Medication Instructions Recorded Methocarbamol [Robaxin-750] 750 mg PO TID PRN #30 tablet 01/02/18 Cyclobenzaprine [Flexeril] 10 mg PO TID #20 tab 05/09/18 Allergies Allergy/AdvReac Type Severity Reaction Status Date / Time No Known Allergies Allergy Verified 05/09/18 15:46 Review of Systems ROS Statement: Those systems with pertinent positive or pertinent negative responses have been documented in the HPI. ROS Other: All systems not noted in ROS Statement are negative. Past Medical History Past Medical History: COPD Additional Past Medical History / Comment(s): medical marijuana for sciatic nerve damage, back pain History of Any Multi-Drug Resistant Organisms: None Reported Past Surgical History: Back Surgery, Hernia Repair Additional Past Surgical History / Comment(s): spine stimulator INSERTION IN BACK Past Anesthesia/Blood Transfusion Reactions: Motion Sickness, Postoperative Nausea & Vomiting (PONV) Past Psychological History: No Psychological Hx Reported Smoking Status: Former smoker Past Alcohol Use History: Occasional Past Drug Use History: Marijuana - Past Family History Mother Family Medical History: No Reported History General Exam - General Exam Comments Initial Comments: Constitutional: NAD, AOX3, Pt has pleasant affect. HEENT: NC/AT, trachea midline, neck supple, no lymphadenopathy. Posterior pharynx non erythematous, without exudates. External ears appear normal, without discharge. Mucous membranes moist. Eyes PERRLA, EOM intact. There is no scleral icterus. No pallor noted. Cardiopulmonary: RRR, no murmurs, rubs or gallops, no JVD noted. Lungs CTAB in anterior and posterior delcid. No peripheral edema. Abdominal exam: Abdomen soft and non-distended. Abdomen non-tender to palpation in all 4 quadrants. Bowel sounds active in LLQ. No hepatosplenomegaly. No ecchymosis Neuro: CN II-XII grossly intact. No nuchal rigidity. MSK: 5/5 stregnth in psoas and quadriceps muscles. L straight leg raise positive. R straight leg raise positive. 2/4 patellar and achilies reflex bilaterally. Pt is ambulatory. No midline cervical, thoracic or lumbar tenderness to palpation. Mild L paralumbar tenderness to palpation. No posterior calf tenderness bilaterally, homans sign negative bilaterally. Posterior tibialis and radial pulse +2 bilaterally. Sensation intact in upper and lower extremities. Full active ROM in upper and lower extremities, 5/5 stregnth. Limitations: no limitations Course Vital Signs 05/09/18 05/09/18 15:43 16:56 Temperature 98.3 F Pulse Rate 102 H 88 Respiratory 20 16 Rate Blood Pressure 149/97 O2 Sat by Pulse 96 Oximetry Medical Decision Making - Medical Decision Making 47-year-old male patient past medical history of chronic lumbar back pain for approximately 13 years. Patient has had a previous laminectomy on his L4-L5. Patient presents to ER today because he has had a exacerbation of his chronic lumbar back pain this morning. Patient denies any recent falls or trauma. Patient states that the pain radiates down his left leg. Patient states that this is normal for patient. Patient denies any new or concerning symptoms including loss of bowel or bladder control, paresthesias, lower extremity weakness. Pt VSS, afebrile. Physical exam displayed: 5/5 stregnth in psoas and quadriceps muscles. L straight leg raise positive. R straight leg raise negative. 2/4 patellar and achilies reflex bilaterally. Pt is ambulatory. No midline cervical, thoracic or lumbar tenderness to palpation. Mild L paralumbar tenderness to palpation. Patient pain moderately well controlled with IM Toradol. Patient to be prescribed Flexeril outpatient. Patient to follow up with primary care provider in 1-2 days. Patient to follow up with previously established orthospine in 1-2 days. Patient to return to ED if new signs symptoms develop or if condition worsens in any way. Case discussed with Dr. Miner. Disposition Clinical Impression: Chronic back pain Disposition: HOME SELF-CARE Condition: Good Instructions: Chronic Back Pain (ED) Additional Instructions: Patient to adhere to previously discussed treatment plan and will take medication(s) as directed. Patient to follow up with PCP in 1-2 days. Patient to return to ED if symptoms do not improve. Prescriptions: Cyclobenzaprine [Flexeril] 10 mg PO TID #20 tab Is patient prescribed a controlled substance at d/c from ED?: No Referrals: None,Stated [Primary Care Provider] - 1-2 days Time of Disposition: 16:53
[2018-05-09 16:56] VITALS: PULSE 88; RESP 16
== END 2018-05-09 16:56 | disposition home or self-care (01) ==
LOC: EC 15:36
DX: G89.29 Other chronic pain (principal); M54.5 Low back pain; Z98.890 Other specified postprocedural states; Z87.891 Personal history of nicotine dependence; Z53.20 Procedure and treatment not carried out because of patient's decision for unspecified reasons
CPT/HCPCS: 99283; 96372; J1885

== ENCOUNTER → 2018-05-31 | Outpatient (CLI) | payer OTHER ==
--- NOTE | 2018-05-31 21:58 | CT ---
EXAMINATION TYPE: CT lumbar spine wo/w con DATE OF EXAM: 05/31/2018 COMPARISON: None. HISTORY: Nerve root impingement per order. Pain per patient. CT DLP: 417 mGycm Automated exposure control for dose reduction was used. CONTRAST: CT scan of the lumbar is performed without and with IV Contrast, patient injected with 100 mL of Isov ue 300. Enhanced CT of the lumbar spine was performed. Bone and soft tissue window settings are submitted as well as coronal and sagittal reconstructions. There are 5 lumbar type vertebra identified. Lumbar spine shows satisfactory alignment without eviden ce of acute fracture or dislocation. There is mild disc space narrowing L4-L5 and L5-S1 levels with t iny posterior disc herniation seen on sagittal images. Vertebral body heights are maintained. There i s partial visualization of spinal stimulator in the thoracic spinal canal. Review of axial images confirms mild facet degenerative changes and tiny central disc protrusions L4- L5 and L5-S1 level. Mild effacement anterior thecal sac at L4-L5 level. Bilateral neural foramina are patent throughout the lumbar spine. No suspicious enhancement is seen. There is 1.2 cm partially exo phytic low dense lesion posteriorly left kidney image 33 series 8 felt to reflect simple cyst. Parasp inal muscle bulk is preserved. IMPRESSION: Mild degenerative changes lower lumbar spine.
== END ==
LOC: RADCTMAIN 15:27
PROVIDERS: ATTEND Family Medicine
DX: G54.9 Nerve root and plexus disorder, unspecified (principal)
CPT/HCPCS: 72133; Q9967

== ENCOUNTER 2018-12-20 09:28 | Emergency (ER) | payer MEDICARE, OTHER ==
[2018-12-20 09:34] VITALS: TEMP 98.1
--- NOTE | 2018-12-20 10:58 | ED ---
General Adult HPI - General Chief complaint: Extremity Injury, Lower Stated complaint: edema in ankles Time Seen by Provider: 12/20/18 09:50 Source: patient, RN notes reviewed Mode of arrival: ambulatory Limitations: no limitations - History of Present Illness Initial comments: 48-year-old male with a past medical history of COPD, back pain presents to the emergency department for chief complaint of right ankle redness and swelling. States this started Thursday. Patient states that it is now extending up his calf. Patient states he had similar occurrence 2 months ago on the left leg, had a negative ultrasound, and was treated outpatient for cellulitis. Patient denies any fevers at this time. Denies any streaking redness.Patient has no other complaints at this time including shortness of breath, chest pain, abdominal pain, nausea or vomiting, headache, or visual changes. - Related Data Previous Rx's Medication Instructions Recorded Cephalexin [Keflex] 500 mg PO Q6H #40 cap 12/20/18 Sulfamethox-Tmp 800-160Mg [Bactrim 1 tab PO Q12HR #20 tab 12/20/18 DS 800-160 mg] Allergies Allergy/AdvReac Type Severity Reaction Status Date / Time No Known Allergies Allergy Verified 12/20/18 10:16 Review of Systems ROS Statement: Those systems with pertinent positive or pertinent negative responses have been documented in the HPI. ROS Other: All systems not noted in ROS Statement are negative. Past Medical History Past Medical History: COPD Additional Past Medical History / Comment(s): medical marijuana for sciatic nerve damage, back pain History of Any Multi-Drug Resistant Organisms: None Reported Past Surgical History: Back Surgery, Hernia Repair Additional Past Surgical History / Comment(s): spine stimulator INSERTION IN BACK Past Anesthesia/Blood Transfusion Reactions: Motion Sickness, Postoperative Nausea & Vomiting (PONV) Past Psychological History: No Psychological Hx Reported Smoking Status: Former smoker Past Alcohol Use History: Occasional Past Drug Use History: Marijuana - Past Family History Mother Family Medical History: No Reported History General Exam Limitations: no limitations General appearance: alert, in no apparent distress Head exam: Present: atraumatic, normocephalic, normal inspection Eye exam: Present: normal appearance, PERRL, EOMI. Absent: scleral icterus, conjunctival injection, periorbital swelling ENT exam: Present: normal exam, mucous membranes moist Neck exam: Present: normal inspection, full ROM. Absent: tenderness, meningismus, lymphadenopathy Respiratory exam: Present: normal lung sounds bilaterally. Absent: respiratory distress, wheezes, rales, rhonchi, stridor Cardiovascular Exam: Present: regular rate, normal rhythm, normal heart sounds. Absent: systolic murmur, diastolic murmur, rubs, gallop, clicks Extremities exam: Present: full ROM (Full range of motion of the right lower extremity including ankle and knee.), tenderness (Tenderness noted to the dorsal foot and ankle.), normal capillary refill (Capillary refill less than 2 seconds, DP pulse 2+ in the right lower extremity.), joint swelling (Does have some mild edema noted of the right foot ankle and distal lower extremity. There is also erythema and increased warmth noted over the ankle and foot. No abrasions, skin is intact between all toes on the dorsal foot and on the plantar foot. No edema or erythema of the left lower extremity.). Absent: pedal edema, calf tenderness Neurological exam: Present: alert Psychiatric exam: Present: normal affect, normal mood Course Vital Signs 12/20/18 09:31 Temperature 98.1 F Pulse Rate 72 Respiratory 18 Rate Blood Pressure 123/81 O2 Sat by Pulse 99 Oximetry Medical Decision Making - Medical Decision Making 48-year-old male with a past medical history of COPD presents for redness of the right lower extremity. This has been ongoing for 2 days. Patient had similar symptoms 2 months ago in the left leg and was treated with outpatient antibiotics. States the left leg was worse at that time. On exam he does have erythema noted of the distal lower extremity on the right as well as erythema of the foot and ankle. Mild edema. Neurovascular status intact. Vitals are stable. Ultrasound of the right lower extremity shows no evidence of DVT. At this time patient likely has a cellulitis. Patient has not had any outpatient antibiotics. Therefore he will be treated with Keflex and Bactrim. However I recommended monitoring for worsening symptoms and returning if these occur. Discussed these in depth with the patient. He will return in 24-48 hours if symptoms do not start to improve. Disposition Clinical Impression: Cellulitis of leg, right Disposition: HOME SELF-CARE Condition: Good Instructions (If sedation given, give patient instructions): Cellulitis (ED) Additional Instructions: Please take antibiotics as directed. Monitor symptoms for the next 24 - 48 hours. If symptoms do not begin to improve in that timeframe return here to the emergency department. Return if you have any worsening symptoms including fever. Otherwise follow-up with primary care for a recheck. Prescriptions: Sulfamethox-Tmp 800-160Mg [Bactrim DS 800-160 mg] 1 tab PO Q12HR #20 tab Cephalexin [Keflex] 500 mg PO Q6H #40 cap Is patient prescribed a controlled substance at d/c from ED?: No Referrals: Ester Johnson MD [REFERRING] - 1-2 days Time of Disposition: 11:42
--- NOTE | 2018-12-20 11:01 | US ---
EXAMINATION TYPE: US venous doppler duplex LE RT DATE OF EXAM: 12/20/2018 10:44 AM COMPARISON: NONE CLINICAL HISTORY: Pain. Swelling right foot/ankle x 2 days SIDE PERFORMED: Right TECHNIQUE: The lower extremity deep venous system is examined utilizing real time linear array sonog zbigniew with graded compression, doppler sonography and color-flow sonography. VESSELS IMAGED: External Iliac Vein (EIV) Common Femoral Vein Deep Femoral Vein Greater Saphenous Vein * Femoral Vein Popliteal Vein Small Saphenous Vein * Proximal Calf Veins (* superficial vessels) Grayscale, color doppler, spectral doppler imaging performed of the deep veins of the right lower ext remity. There is normal flow, compressibility, vascular waveforms. Right Leg: Negative for DVT IMPRESSION: No sonographic evidence of deep venous thrombosis within the right lower extremity.
[2018-12-20] MEDS ORDERED: cefTRIAXone 1,000 MG VIAL (IM USE) IM STA (11:59)
[2018-12-20] MEDS ORDERED: SULFAMETH-TMP DS STARTER PACK 2 TAB BTL PO STA (11:59)
[2018-12-20] MEDS ORDERED: CEPHALEXIN 500MG STARTER PACK 4 CAP BTL PO STA (11:59)
[2018-12-20 12:27] VITALS: BP 124/82; PULSE 70; RESP 14
== END 2018-12-20 12:15 | disposition home or self-care (01) ==
LOC: EC 09:28
DX: L03.115 Cellulitis of right lower limb (principal); Z87.891 Personal history of nicotine dependence
CPT/HCPCS: 93971; 99283; 96372; J0696

== ENCOUNTER → 2018-12-25 | Outpatient (CLI) | payer OTHER ==
[2018-12-25 10:43] LABS: Appearance,Urine Clear (Clear); Bilirubin,Urine Negative (Negative); Blood,Urine Moderate (Negative); Color,Urine Yellow; Glucose,Urine (UA) Negative (Negative); Ketones,Urine Negative (Negative); Leukocyte Esterase,Urine Negative (Negative); Mucus,Urine Occasional /hpf; Nitrite,Urine Negative (Negative); PH, Urine 5.5 (5.0-8.0); Protein,Urine Trace (Negative); RBC,Urine <1 /hpf (0-5); Specific Gravity,Urine 1.025 (1.001-1.035); Urobilinogen,Urine <2.0 mg/dL (<2.0); WBC,Urine <1 /hpf (0-5)
[2018-12-25 10:48] LABS: HCT 42.2 % (39.0-53.0); HGB 13.7 gm/dL (13.0-17.5); MCHC 32.5 g/dL (31.0-37.0); MCV 92.4 fL (80.0-100.0); Mean Platelet Volume 6.3; Platelet Count 315 k/uL (150-450); RBC 4.57 m/uL (4.30-5.90); RDW 13.3 % (11.5-15.5); WBC 5.3 k/uL (3.8-10.6)
[2018-12-25 10:50] LABS: INR 0.9 (<1.2); Prothrombin Time 9.8 sec (9.0-12.0)
[2018-12-25 11:41] LABS: Basophils # (M) 0.11 k/uL (0-0.2); Eosinophils # (M) 0.27 k/uL (0-0.7); Lymphocytes # (M) 1.06 k/uL (1.0-4.8); Monocytes # (M) 1.11 k/uL (0-1.0); Neutrophils % (M) 54 %; Nucleated Red Blood Cells 0 /100 WBC (0-0); Total Cells Counted 200
[2018-12-25 16:55] LABS: Anion Gap 7.7 mmol/L (4.00-12.00); Carbon Dioxide 28.3 mmol/L (21.6-31.8)
== END | disposition home or self-care (01) ==
LOC: LABWHC1 10:12
PROVIDERS: ATTEND Neurological Surgery
DX: M96.1 Postlaminectomy syndrome, not elsewhere classified (principal)
CPT/HCPCS: 36415; 80051; 81001; 82565; 84520; 85025; 85610; 87086

== ENCOUNTER → 2019-03-02 | Outpatient (CLI) | payer MEDICARE ==
[~2019-03-02] MED LIST: REGADENOSON 0.4 MG/5 ML SYRINGE IV ONE
--- NOTE | 2019-03-02 11:58 | NM ---
EXAMINATION TYPE: NM stress lexiscan cardiolite DATE OF EXAM: 03/02/2019 COMPARISON: NONE HISTORY: Hypertension TECHNIQUE: After the intravenous administration of 10.25 mCi Tc 99m Sestamibi - Cardiolite resting S PECT images acquired 45 minutes post injection. The patient received 0.4mg Lexiscan, 25.9 mCi Tc 99m Sestamibi - Stress images obtained [address] injection FINDINGS: Review of stress and rest SPECT images demonstrates no reversible perfusion abnormality. Or fixed sm all fixed defect of the septal wall in the apical and mid segments greater on rest than stress. Gated analysis shows slight hypokinesis of the septal wall in keeping with the perfusion abnormality. With an estimated left ventricular ejection fraction of 51 %. TID is within normal limits calculated at 1 .17 IMPRESSION: 1. No scintigraphic evidence for reversible ischemia. 2. Fixed defect of the wall and septal wall hypokinesis are indicative of small prior infarct. 3. Estimated left ventricular ejection fraction of 51%.
--- NOTE | 2019-03-02 15:04 | EST ---
EXERCISE STRESS AGE: 48 SEX: M HT: 69" WT: 180 PROTOCOL: Lexiscan Cardiolite Stress Test HEART RATE REST: 50 BLOOD PRESSURE REST: 125/71 MAXIMUM HEART RATE ACHIEVED: 76 MAXIMUM BLOOD PRESSURE: 112/68 85% MPHR: 147 100% MPHR: 175 INDICATIONS: Hypertension. CLINICAL INFORMATION: Baseline EKG revealed normal sinus rhythm without significant ST changes. With Lexiscan administration, patient developed transient shortness of breath. Heart rate changed from 50-76 beats per minute, blood pressure changed from 125/71 to 112/68, and came back to baseline. By EKG criteria, this is an unremarkable Lexiscan stress test. The nuclear scan results are more pertinent will be reported by the radiologist. MMODL / IJN: [id number] /
== END | disposition home or self-care (01) ==
LOC: RADNMMAIN 08:24
PROVIDERS: ATTEND Family Medicine
DX: R06.02 Shortness of breath (principal); I10 Essential (primary) hypertension
CPT/HCPCS: 93017; 78452; A9500; J2785

== ENCOUNTER → 2021-02-25 | Outpatient (CLI) | payer MEDICARE ==
--- NOTE | 2021-02-25 09:12 | CT ---
EXAMINATION TYPE: CT brain w con DATE OF EXAM: 02/25/2021 COMPARISON: Noncontrast CT head 12/22/2017 HISTORY: 50-year-old male G44.52 new daily persistent headache TECHNIQUE: Contiguous axial scanning of the brain performed with IV Contrast, patient injected with 1 00 mL of Isovue 300. Coronal/sagittal reconstructions performed. CT DLP: 999.8 mGycm Automated exposure control for dose reduction was used. FINDINGS: There is no abnormal enhancing mass or midline shift identified. The ventricles and sulci are within normal limits in size. The globes are intact and the visualized sinuses are clear. There is diffuse ectasia of the left vertebral artery and basilar artery measuring up to 6 mm. The ri ght vertebral artery is hypoplastic. Partially empty sella noted. Moderate mucosal thickening throughout the sphenoid sinuses and ethmoid air cells and mild within the frontal and maxillary sinuses. Mastoid air cells are well pneumatized. Orbits and globes appear inta ct. IMPRESSION: 1. MODERATE CHRONIC PARANASAL SINUS DISEASE. CORRELATE ESTIMATE THIS MAY BE CONTRIBUTING TO THE PATIE NT'S SYMPTOMS. 2. DIFFUSE ECTASIA OF THE LEFT VERTEBRAL AND BASILAR ARTERY MEASURING UP TO 6 MM. THIS ECTASIA APPEAR S TO HAVE BEEN PRESENT ON THE 2018 EXAM WELL. 3. NO ENHANCING LESIONS, MASS EFFECT, OR MIDLINE SHIFT SEEN.
== END | disposition home or self-care (01) ==
LOC: RADCTMAIN 07:42
PROVIDERS: ATTEND Family Medicine
DX: G44.52 New daily persistent headache (NDPH) (principal)
CPT/HCPCS: 70460; Q9967

== ENCOUNTER 2021-04-03 18:04 | Emergency (ER) | payer MEDICARE ==
[2021-04-03] MEDS ORDERED: KETOROLAC 15 MG/ML 1 ML VIAL IM STA (21:13)
--- NOTE | 2021-04-03 21:29 | ED ---
Extremity Problem HPI - General Chief complaint: Extremity Problem,Nontraumatic Stated complaint: Rt Leg Pain/Swelling Time Seen by Provider: 04/03/21 19:33 Source: patient, RN notes reviewed Mode of arrival: wheelchair Limitations: physical limitation - History of Present Illness Initial comments: This a 50-year-old male presents emergency department with chief complaint right leg issues. Patient states that he was told he has cellulitis she was given antibiotic but states that it causes diarrhea for one episode so he discontinued. He states he's had issues with this in the past and states spotting times had similar issues. He states she's having increased swelling to his right leg he states he had lab work which showed negative d-dimer she'll he did not ultrasound his leg. He denies any trauma no fevers or chills she states is uncomfortable. - Related Data Previous Rx's Medication Instructions Recorded Cephalexin [Keflex] 500 mg PO Q6H #40 cap 12/20/18 Sulfamethox-Tmp 800-160Mg [Bactrim 1 tab PO Q12HR #20 tab 12/20/18 DS 800-160 mg] Allergies Allergy/AdvReac Type Severity Reaction Status Date / Time No Known Allergies Allergy Verified 04/03/21 18:59 Review of Systems ROS Statement: Those systems with pertinent positive or pertinent negative responses have been documented in the HPI. ROS Other: All systems not noted in ROS Statement are negative. Past Medical History Past Medical History: COPD Additional Past Medical History / Comment(s): medical marijuana for sciatic nerve damage, back pain History of Any Multi-Drug Resistant Organisms: None Reported Past Surgical History: Back Surgery, Hernia Repair Additional Past Surgical History / Comment(s): spine stimulator INSERTION IN BACK Past Anesthesia/Blood Transfusion Reactions: Motion Sickness, Postoperative Nausea & Vomiting (PONV) Past Psychological History: No Psychological Hx Reported Smoking Status: Never smoker Past Alcohol Use History: Occasional Past Drug Use History: Marijuana - Past Family History Mother Family Medical History: No Reported History General Exam Limitations: physical limitation General appearance: alert, in no apparent distress Head exam: Present: atraumatic, normocephalic, normal inspection Eye exam: Present: normal appearance, PERRL, EOMI. Absent: scleral icterus, conjunctival injection, periorbital swelling Respiratory exam: Present: normal lung sounds bilaterally. Absent: respiratory distress, wheezes, rales, rhonchi, stridor Cardiovascular Exam: Present: regular rate, normal rhythm, normal heart sounds. Absent: systolic murmur, diastolic murmur, rubs, gallop, clicks Extremities exam: Present: other (Right leg there is moderate swelling, erythema at the distal tib-fib region, no open lesions or sores increased warmth, swelling, tenderness with palpation pulses equal bilaterally) Course Vital Signs 04/03/21 19:00 Temperature 98.9 F Pulse Rate 86 Respiratory 18 Rate Blood Pressure 125/82 O2 Sat by Pulse 98 Oximetry Medical Decision Making - Medical Decision Making 50-year-old presented for leg redness. Patient some swelling ultrasound was performed no DVT. There is area noted on ultrasound though there is no skin changes no focal abscess. Patient will be given Bactrim he is a prescription tomorrow as prescribed by PCP follow-up in 24 hours or follow-up vascular. Disposition Clinical Impression: Cellulitis of right leg, Leg edema, right Disposition: HOME SELF-CARE Condition: Stable Instructions (If sedation given, give patient instructions): Cellulitis (ED) Additional Instructions: Please return to the Emergency Department if symptoms worsen or any other concerns. Is patient prescribed a controlled substance at d/c from ED?: No Referrals: Kristan Ballard III, MD [Primary Care Provider] - 1-2 days Sirisha Quinn DO [STAFF PHYSICIAN] - 1-2 days Time of Disposition: 22:44
--- NOTE | 2021-04-03 22:23 | US ---
EXAMINATION TYPE: US venous doppler duplex LE RT DATE OF EXAM: 04/03/2021 9:44 PM COMPARISON: US CLINICAL HISTORY: pain. Pain. No hx of DVT. Patient does not take blood thinners. SIDE PERFORMED: Right TECHNIQUE: The lower extremity deep venous system is examined utilizing real time linear array sonog zbigniew with graded compression, doppler sonography and color-flow sonography. VESSELS IMAGED: Common Femoral Vein Deep Femoral Vein Greater Saphenous Vein * Femoral Vein Popliteal Vein Small Saphenous Vein * Proximal Calf Veins (* superficial vessels) Right Leg: Hypoechoic area with hyperechoic center seen within the right groin: 1.5 x 1.2 x 1.1 cm. No evidence of DVT in veins imaged at this time. IMPRESSION: No sign of deep vein thrombosis in the right leg.
[2021-04-03] MEDS ORDERED: SULFAMETH-TMP DS STARTER PACK 2 TAB BTL PO STA (22:42)
[2021-04-03] MEDS ORDERED: ACET/COD 300 MG/30 MG STARTER PACK 6 TAB BTL PO STA (22:42)
[2021-04-03] MEDS ORDERED: HYDROcodone/APAP 5-325MG 1 EACH TAB PO STA (22:42)
[2021-04-03 23:06] VITALS: BP 146/89; PULSE 102; RESP 19; TEMP 98.8
== END 2021-04-03 23:06 | disposition home or self-care (01) ==
LOC: EC 18:04
DX: L03.115 Cellulitis of right lower limb (principal); J44.9 Chronic obstructive pulmonary disease, unspecified; F12.90 Cannabis use, unspecified, uncomplicated
CPT/HCPCS: 93971; 99283; 96372; J1885

== ENCOUNTER 2021-04-22 14:10 | Inpatient (IN) | payer MEDICARE ==
[2021-04-22] MEDS ORDERED: SODIUM CHLORIDE 0.9% 1,000 ML IV ONE ×2 (14:29→16:56)
[2021-04-22] MEDS ORDERED: LORazepam 2 MG/ML INJ IV STA (14:35)
--- NOTE | 2021-04-22 14:56 | ED ---
General Adult HPI - General Chief complaint: Altered Mental Status Stated complaint: Fever/AMS Time Seen by Provider: 04/22/21 14:25 Source: EMS, RN notes reviewed, old records reviewed Mode of arrival: EMS Limitations: altered mental status - History of Present Illness Initial comments: This is a 50-year-old male presents emergency Department by EMS. Patient comes in because patient was last seen normal 2 days ago. Son found the patient today altered he is normally alert and oriented 3. According to EMS son stated he is not a drinker in the nose and no issues with the patient other than being on Bactrim for a leg infection. Patient is unable to answer any questions at this time he occasionally swears but is not answering any questions or following any commands currently. - Related Data Home Medications Medication Instructions Recorded Confirmed Atorvastatin Calcium [Lipitor] 40 mg PO DAILY 04/22/21 04/22/21 Fluticasone Nasal [place] [Flonase 1 spray EA NOSTRIL DAILY 04/22/21 04/22/21 Nasal [place]] Ibuprofen [Motrin] 800 mg PO TID-W/MEALS PRN 04/22/21 04/22/21 Lisinopril [Prinivil] 10 mg PO DAILY 04/22/21 04/22/21 Sulfamethox-Tmp 800-160Mg [Bactrim 1 tab PO BID 04/22/21 04/22/21 DS 800-160 mg] Tiotropium Br/Olodaterol HCl 2 puff INHALATION RT-DAILY 04/22/21 04/22/21 [Stiolto Respimat Inhal [place]] Allergies Allergy/AdvReac Type Severity Reaction Status Date / Time No Known Allergies Allergy Verified 04/22/21 14:26 Review of Systems ROS Statement: Those systems with pertinent positive or pertinent negative responses have been documented in the HPI. ROS Other: All systems not noted in ROS Statement are negative. Past Medical History Past Medical History: COPD Additional Past Medical History / Comment(s): medical marijuana for sciatic nerve damage, back pain History of Any Multi-Drug Resistant Organisms: None Reported Past Surgical History: Back Surgery, Hernia Repair Additional Past Surgical History / Comment(s): spine stimulator INSERTION IN BACK Past Anesthesia/Blood Transfusion Reactions: Motion Sickness, Postoperative Nausea & Vomiting (PONV) Past Psychological History: No Psychological Hx Reported Smoking Status: Never smoker Past Alcohol Use History: Occasional Past Drug Use History: Marijuana - Past Family History Mother Family Medical History: No Reported History General Exam - General Exam Comments Initial Comments: GENERAL: Patient is well-developed and well-nourished. Patient is nontoxic and well- hydrated and is in no acute distress. ENT: Neck is soft and supple. No significant lymphadenopathy is noted. Oropharynx is clear. Moist mucous membranes. EYES: The sclera were anicteric and conjunctiva were pink and moist. Extraocular movements were intact and pupils were equal round and reactive to light. Eyelids were unremarkable. PULMONARY: Unlabored respirations. Good breath sounds bilaterally. Patient has expiratory wheezing CARDIOVASCULAR: There is a regular rate and rhythm without any murmurs gallops or rubs. ABDOMEN: Soft and nontender with normal bowel sounds. SKIN: Skin is clear with no lesions or rashes and otherwise unremarkable. NEUROLOGIC: Patient is alert and oriented 0. Unable to do further testing this patient cannot follow commands. Patient is moving all 4 of his extremities. MUSCULOSKELETAL: Patient is moving all 4 extremities LYMPHATICS: No significant lymphadenopathy is noted PSYCHIATRIC: Unable to assess Limitations: altered mental status Course Vital Signs 04/22/21 14:22 Temperature 100.5 F H Pulse Rate 108 H Respiratory 20 Rate Blood Pressure 124/91 O2 Sat by Pulse 99 Oximetry Medical Decision Making - Medical Decision Making EKG shows sinus tachycardia 112 bpm SD interval 128 QRS is 70 QT interval 318 QTC is 434. EKG shows low-voltage QRS in the precordial leads. Patient's chest x-ray showed pneumonia this was determined at 3:30 Patient was started on antibiotics Patient remained significantly altered. Patient's CPK was 2800. I spoke with Dr. Tejada he agreed to admit the patient admitted the patient I wrote admitting orders. - Lab Data Result diagrams: 04/22/21 14:39 04/22/21 14:39 Lab Results 04/22/21 04/22/21 04/22/21 Range/Units 14:39 14:39 14:39 WBC 16.6 H (3.8-10.6) k/uL RBC 4.32 (4.30-5.90) m/uL Hgb 12.8 L (13.0-17.5) gm/dL Hct 40.9 (39.0-53.0) % MCV 94.7 (80.0-100.0) fL MCH 29.7 (25.0-35.0) pg MCHC 31.4 (31.0-37.0) g/dL RDW 13.0 (11.5-15.5) % Plt Count 588 H (150-450) k/uL MPV 7.5 Neutrophils % 77 % Lymphocytes % 6 % Monocytes % 13 % Eosinophils % 0 % Basophils % 1 % Neutrophils # 12.8 H (1.3-7.7) k/uL Lymphocytes # 1.0 (1.0-4.8) k/uL Monocytes # 2.2 H (0-1.0) k/uL Eosinophils # 0.1 (0-0.7) k/uL Basophils # 0.1 (0-0.2) k/uL PT 10.4 (9.0-12.0) sec INR 1.0 (<1.2) APTT 21.1 L (22.0-30.0) sec D-Dimer (<0.60) mg/L FEU Sodium (137-145) mmol/L Potassium (3.5-5.1) mmol/L Chloride (98-107) mmol/L Carbon Dioxide (22-30) mmol/L Anion Gap mmol/L BUN (9-20) mg/dL Creatinine (0.66-1.25) mg/dL Est GFR (CKD-EPI)AfAm (>60 ml/min/1.73 sqM) Est GFR (CKD-EPI)NonAf (>60 ml/min/1.73 sqM) Glucose (74-99) mg/dL Plasma Lactic Acid Jose (0.7-2.0) mmol/L Calcium (8.4-10.2) mg/dL Total Bilirubin (0.2-1.3) mg/dL AST (17-59) U/L ALT (4-49) U/L Alkaline Phosphatase (38-126) U/L Ammonia (<30) umol/L Creatine Kinase (55-170) U/L Troponin I (0.000-0.034) ng/mL Total Protein (6.3-8.2) g/dL Albumin (3.5-5.0) g/dL Urine Color Yellow Urine Appearance Clear (Clear) Urine pH 5.5 (5.0-8.0) Ur Specific [place] 1.024 (1.001-1.035) Urine Protein 1+ H (Negative) Urine Glucose (UA) Negative (Negative) Urine Ketones 1+ H (Negative) Urine Blood Large H (Negative) Urine Nitrite Negative (Negative) Urine Bilirubin Negative (Negative) Urine Urobilinogen <2.0 (<2.0) mg/dL Ur Leukocyte Esterase Negative (Negative) Urine RBC <1 (0-5) /hpf Urine WBC 3 (0-5) /hpf Cellular Casts 1 (0) /lpf Hyaline Casts 5 H (0-2) /lpf Urine Mucus Occasional H (None) /hpf Urine Opiates Screen Not Detected (NotDetected) Ur Oxycodone Screen Not Detected (NotDetected) Urine Methadone Screen Not Detected (NotDetected) Ur Propoxyphene Screen Not Detected (NotDetected) Ur Barbiturates Screen Not Detected (NotDetected) U Tricyclic Antidepress Not Detected (NotDetected) Ur Phencyclidine Scrn Not Detected (NotDetected) Ur Amphetamines Screen Not Detected (NotDetected) U Methamphetamines Scrn Not Detected (NotDetected) U Benzodiazepines Scrn Not Detected (NotDetected) Urine Cocaine Screen Not Detected (NotDetected) U Marijuana (THC) Screen Detected H (NotDetected) Serum Alcohol mg/dL Coronavirus (PCR) (Not Detectd) 04/22/21 04/22/21 04/22/21 Range/Units 14:39 14:39 14:39 WBC (3.8-10.6) k/uL RBC (4.30-5.90) m/uL Hgb (13.0-17.5) gm/dL Hct (39.0-53.0) % MCV (80.0-100.0) fL MCH (25.0-35.0) pg MCHC (31.0-37.0) g/dL RDW (11.5-15.5) % Plt Count (150-450) k/uL MPV Neutrophils % % Lymphocytes % % Monocytes % % Eosinophils % % Basophils % % Neutrophils # (1.3-7.7) k/uL Lymphocytes # (1.0-4.8) k/uL Monocytes # (0-1.0) k/uL Eosinophils # (0-0.7) k/uL Basophils # (0-0.2) k/uL PT (9.0-12.0) sec INR (<1.2) APTT (22.0-30.0) sec D-Dimer (<0.60) mg/L FEU Sodium 136 L (137-145) mmol/L Potassium 4.7 (3.5-5.1) mmol/L Chloride 101 (98-107) mmol/L Carbon Dioxide 21 L (22-30) mmol/L Anion Gap 14 mmol/L BUN 23 H (9-20) mg/dL Creatinine 1.26 H (0.66-1.25) mg/dL Est GFR (CKD-EPI)AfAm 77 (>60 ml/min/1.73 sqM) Est GFR (CKD-EPI)NonAf 67 (>60 ml/min/1.73 sqM) Glucose 108 H (74-99) mg/dL Plasma Lactic Acid Jose (0.7-2.0) mmol/L Calcium 9.5 (8.4-10.2) mg/dL Total Bilirubin 0.7 (0.2-1.3) mg/dL AST 83 H (17-59) U/L ALT 30 (4-49) U/L Alkaline Phosphatase 49 (38-126) U/L Ammonia <9 (<30) umol/L Creatine Kinase 2858 H* (55-170) U/L Troponin I <0.012 (0.000-0.034) ng/mL Total Protein 7.2 (6.3-8.2) g/dL Albumin 4.1 (3.5-5.0) g/dL Urine Color Urine Appearance (Clear) Urine pH (5.0-8.0) Ur Specific [place] (1.001-1.035) Urine Protein (Negative) Urine Glucose (UA) (Negative) Urine Ketones (Negative) Urine Blood (Negative) Urine Nitrite (Negative) Urine Bilirubin (Negative) Urine Urobilinogen (<2.0) mg/dL Ur Leukocyte Esterase (Negative) Urine RBC (0-5) /hpf Urine WBC (0-5) /hpf Cellular Casts (0) /lpf Hyaline Casts (0-2) /lpf Urine Mucus (None) /hpf Urine Opiates Screen (NotDetected) Ur Oxycodone Screen (NotDetected) Urine Methadone Screen (NotDetected) Ur Propoxyphene Screen (NotDetected) Ur Barbiturates Screen (NotDetected) U Tricyclic Antidepress (NotDetected) Ur Phencyclidine Scrn (NotDetected) Ur Amphetamines Screen (NotDetected) U Methamphetamines Scrn (NotDetected) U Benzodiazepines Scrn (NotDetected) Urine Cocaine Screen (NotDetected) U Marijuana (THC) Screen (NotDetected) Serum Alcohol <10 mg/dL Coronavirus (PCR) (Not Detectd) 04/22/21 04/22/21 04/22/21 Range/Units 14:39 15:26 16:13 WBC (3.8-10.6) k/uL RBC (4.30-5.90) m/uL Hgb (13.0-17.5) gm/dL Hct (39.0-53.0) % MCV (80.0-100.0) fL MCH (25.0-35.0) pg MCHC (31.0-37.0) g/dL RDW (11.5-15.5) % Plt Count (150-450) k/uL MPV Neutrophils % % Lymphocytes % % Monocytes % % Eosinophils % % Basophils % % Neutrophils # (1.3-7.7) k/uL Lymphocytes # (1.0-4.8) k/uL Monocytes # (0-1.0) k/uL Eosinophils # (0-0.7) k/uL Basophils # (0-0.2) k/uL PT (9.0-12.0) sec INR (<1.2) APTT (22.0-30.0) sec D-Dimer 2.88 H (<0.60) mg/L FEU Sodium (137-145) mmol/L Potassium (3.5-5.1) mmol/L Chloride (98-107) mmol/L Carbon Dioxide (22-30) mmol/L Anion Gap mmol/L BUN (9-20) mg/dL Creatinine (0.66-1.25) mg/dL Est GFR (CKD-EPI)AfAm (>60 ml/min/1.73 sqM) Est GFR (CKD-EPI)NonAf (>60 ml/min/1.73 sqM) Glucose (74-99) mg/dL Plasma Lactic Acid Jose 3.8 H* (0.7-2.0) mmol/L Calcium (8.4-10.2) mg/dL Total Bilirubin (0.2-1.3) mg/dL AST (17-59) U/L ALT (4-49) U/L Alkaline Phosphatase (38-126) U/L Ammonia (<30) umol/L Creatine Kinase (55-170) U/L Troponin I (0.000-0.034) ng/mL Total Protein (6.3-8.2) g/dL Albumin (3.5-5.0) g/dL Urine Color Urine Appearance (Clear) Urine pH (5.0-8.0) Ur Specific [place] (1.001-1.035) Urine Protein (Negative) Urine Glucose (UA) (Negative) Urine Ketones (Negative) Urine Blood (Negative) Urine Nitrite (Negative) Urine Bilirubin (Negative) Urine Urobilinogen (<2.0) mg/dL Ur Leukocyte Esterase (Negative) Urine RBC (0-5) /hpf Urine WBC (0-5) /hpf Cellular Casts (0) /lpf Hyaline Casts (0-2) /lpf Urine Mucus (None) /hpf Urine Opiates Screen (NotDetected) Ur Oxycodone Screen (NotDetected) Urine Methadone Screen (NotDetected) Ur Propoxyphene Screen (NotDetected) Ur Barbiturates Screen (NotDetected) U Tricyclic Antidepress (NotDetected) Ur Phencyclidine Scrn (NotDetected) Ur Amphetamines Screen (NotDetected) U Methamphetamines Scrn (NotDetected) U Benzodiazepines Scrn (NotDetected) Urine Cocaine Screen (NotDetected) U Marijuana (THC) Screen (NotDetected) Serum Alcohol mg/dL Coronavirus (PCR) Not Detected (Not Detectd) Disposition Clinical Impression: Rhabdomyolysis, Acute renal insufficiency, Pneumonia, Altered mental status Disposition: ADMITTED IP TO THIS [facility] Referrals: Kristan Ballard III, MD [Primary Care Provider] - 1-2 days Time of Disposition: 17:31
[2021-04-22 14:57] LABS: Basophils # (A) 0.1 k/uL (0-0.2); Basophils % (A) 1 %; Eosinophils # (A) 0.1 k/uL (0-0.7); Eosinophils % (A) 0 %; HCT 40.9 % (39.0-53.0); HGB 12.8 gm/dL (13.0-17.5); Lymphocytes % (A) 6 %; MCH 29.7 pg (25.0-35.0); MCHC 31.4 g/dL (31.0-37.0); MCV 94.7 fL (80.0-100.0); Mean Platelet Volume 7.5; Monocytes # (A) 2.2 k/uL (0-1.0); Monocytes % (A) 13 %; Neutrophils # (A) 12.8 k/uL (1.3-7.7); Neutrophils % (A) 77 %; Platelet Count 588 k/uL (150-450); RBC 4.32 m/uL (4.30-5.90); WBC 16.6 k/uL (3.8-10.6)
[2021-04-22 15:08] LABS: AST 83 U/L (17-59); African American GFR (CKD) 77 (>60 ml/min/1.73 sqM); Albumin 4.1 g/dL (3.5-5.0); Alcohol <10 mg/dL; Alkaline Phosphatase 49 U/L (38-126); Anion Gap 14 mmol/L; Blood Urea Nitrogen 23 mg/dL (9-20); Calcium 9.5 mg/dL (8.4-10.2); Carbon Dioxide 21 mmol/L (22-30); Chloride 101 mmol/L (98-107); Glucose 108 mg/dL (74-99); Non-African American GFR(CKD) 67 (>60 ml/min/1.73 sqM); Potassium 4.7 mmol/L (3.5-5.1); Sodium 136 mmol/L (137-145); Total Bilirubin 0.7 mg/dL (0.2-1.3); Total Protein 7.2 g/dL (6.3-8.2)
[2021-04-22 15:17] LABS: ALT 30 U/L (4-49)
[2021-04-22 15:26] LABS: Creatine Kinase 2858 U/L (55-170)
[2021-04-22] MEDS ORDERED: cefTRIAXone IN SWFI 1,000 MG/10 ML SYRINGE IVP STA ×2 (15:31→15:59)
--- NOTE | 2021-04-22 15:45 | CT ---
EXAMINATION TYPE: CT brain wo con DATE OF EXAM: 04/22/2021 COMPARISON: 02/25/2021 HISTORY: AMS CT DLP: 1080.[address] of the brain was performed. The ventricles, basal cisterns and sulci overlying the cerebral convexities demonstrate a normal appe arance. There is no evidence for intracranial hemorrhage or sulcal effacement. No mass effects are seen. Osseous calvarium is intact. If symptoms persist consider MRI as clinically warranted. IMPRESSION: 1. No acute intracranial process is seen at this time.
--- NOTE | 2021-04-22 15:45 | XR ---
EXAMINATION TYPE: XR chest 2V DATE OF EXAM: 04/22/2021 COMPARISON: 12/02/2011 INDICATION: Altered mental status TECHNIQUE: Frontal and lateral views of the chest are obtained. FINDINGS: The heart size is normal. The pulmonary vasculature is normal. The lateral projection there appears to be a large density overlying the lower lumbar spine. Correlat e for right lower lobe infiltrate. This is not clearly evident on the frontal projection. Note is mad e of central spinal canal stimulator leads. IMPRESSION: 1. Suspected posterior consolidation. Follow-up chest studies are recommended.
[2021-04-22 15:49] LABS: Prothrombin Time 10.4 sec (9.0-12.0)
[2021-04-22 16:26] LABS: Partial Thromboplastin Time 21.1 sec (22.0-30.0)
[2021-04-22 16:55] LABS: Appearance,Urine Clear (Clear); Bilirubin,Urine Negative (Negative); Blood,Urine Large (Negative); Cellular Casts,Urine 1 /lpf (0); Color,Urine Yellow; Glucose,Urine (UA) Negative (Negative); Hyaline Casts,Urine 5 /lpf (0-2); Ketones,Urine 1+ (Negative); Leukocyte Esterase,Urine Negative (Negative); Mucus,Urine Occasional /hpf; Nitrite,Urine Negative (Negative); PH, Urine 5.5 (5.0-8.0); Protein,Urine 1+ (Negative); RBC,Urine <1 /hpf (0-5); Specific Gravity,Urine 1.024 (1.001-1.035); Urobilinogen,Urine <2.0 mg/dL (<2.0); WBC,Urine 3 /hpf (0-5)
--- NOTE | 2021-04-22 17:01 | P.HPIM ---
History of Present Illness 50-year-old male was a found on the floor with decreased response to the hospital. Patient is awake alert patient doesn't talk which is intentional. Because of which I am unable to assess his orientation although patient is found to have fever right posterior lung field infiltrate along with leukocytosis. Patient is a mildly elevated the CK up to 2000 without any evidence of rhabdomyolysis. It appears patient has been taking Bactrim at home. Patient has elevated creatinine up to 1.4 with mild hyponatremia. Which can be se condary to Bactrim. REVIEW OF SYSTEMS: Would obtain as patient doesn't talk which is intentional. PHYSICAL EXAMINATION: GENERAL: The patient is alert and talk much, not in any acute distress. Well developed, well nourished. HEENT: Pupils are round and equally reacting to light. EOMI. No scleral icterus. No conjunctival pallor. Normocephalic, atraumatic. No pharyngeal erythema. No thyromegaly. CARDIOVASCULAR: S1 and S2 present. No murmurs, rubs, or gallops. PULMONARY: Chest is clear to auscultation, no wheezing or crackles. ABDOMEN: Soft, nontender, nondistended, normoactive bowel sounds. No palpable organomegaly. MUSCULOSKELETAL: No joint swelling or deformity. EXTREMITIES: No cyanosis, clubbing, or pedal edema. NEUROLOGICAL: Gross neurological examination did not reveal any focal deficits. SKIN: No rashes. Assessment and plan -Possible right lower lobe pneumonia for which patient will be started on Rocephin and azithromycin which will be continued. -Possible hypervolemic hyponatremia for which patient will be on IV fluids -Elevated CK secondary to muscle inflammation from being on the floor for long time. -Acute renal failure: Elevated creatinine can be a false elevation secondary to Bactrim and hyponatremia secondary to Bactrim as well -3 without any acute exacerbation DVT prophylaxis: Heparin subcutaneous Past Medical History Past Medical History: COPD Additional Past Medical History / Comment(s): medical marijuana for sciatic nerve damage, back pain History of Any Multi-Drug Resistant Organisms: None Reported Past Surgical History: Back Surgery, Hernia Repair Additional Past Surgical History / Comment(s): spine stimulator INSERTION IN BACK Past Anesthesia/Blood Transfusion Reactions: Motion Sickness, Postoperative Nausea & Vomiting (PONV) Past Psychological History: No Psychological Hx Reported Smoking Status: Never smoker Past Alcohol Use History: Occasional Past Drug Use History: Marijuana - Past Family History Mother Family Medical History: No Reported History Medications and Allergies Home Medications Medication Instructions Recorded Confirmed Type Atorvastatin Calcium [Lipitor] 40 mg PO DAILY 04/22/21 04/22/21 History Fluticasone Nasal [place] [Flonase 1 spray EA NOSTRIL DAILY 04/22/21 04/22/21 History Nasal [place]] Ibuprofen [Motrin] 800 mg PO TID-W/MEALS PRN 04/22/21 04/22/21 History Lisinopril [Prinivil] 10 mg PO DAILY 04/22/21 04/22/21 History Sulfamethox-Tmp 800-160Mg [Bactrim 1 tab PO BID 04/22/21 04/22/21 History DS 800-160 mg] Tiotropium Br/Olodaterol HCl 2 puff INHALATION RT-DAILY 04/22/21 04/22/21 History [Stiolto Respimat Inhal [place]] Allergies Allergy/AdvReac Type Severity Reaction Status Date / Time No Known Allergies Allergy Verified 04/22/21 14:26 Physical Exam Vitals: Vital Signs Temp Pulse Resp BP Pulse Ox 04/22/21 14:22 100.5 F H 108 H 20 124/91 99 Intake and Output 04/22/21 04/22/21 04/22/21 06:59 14:59 22:59 Other: Weight 82.463 kg Results CBC & Chem 7: 04/22/21 14:39 04/22/21 14:39 Labs: Abnormal Lab Results - Last 24 Hours (Table) 04/22/21 04/22/21 04/22/21 Range/Units 14:39 14:39 14:39 WBC 16.6 H (3.8-10.6) k/uL Hgb 12.8 L (13.0-17.5) gm/dL Plt Count 588 H (150-450) k/uL Neutrophils # 12.8 H (1.3-7.7) k/uL Monocytes # 2.2 H (0-1.0) k/uL APTT 21.1 L (22.0-30.0) sec Sodium (137-145) mmol/L Carbon Dioxide (22-30) mmol/L BUN (9-20) mg/dL Creatinine (0.66-1.25) mg/dL Glucose (74-99) mg/dL Plasma Lactic Acid Jose (0.7-2.0) mmol/L AST (17-59) U/L Creatine Kinase (55-170) U/L Urine Protein 1+ H (Negative) Urine Ketones 1+ H (Negative) Urine Blood Large H (Negative) Hyaline Casts 5 H (0-2) /lpf Urine Mucus Occasional H (None) /hpf 04/22/21 04/22/21 Range/Units 14:39 15:26 WBC (3.8-10.6) k/uL Hgb (13.0-17.5) gm/dL Plt Count (150-450) k/uL Neutrophils # (1.3-7.7) k/uL Monocytes # (0-1.0) k/uL APTT (22.0-30.0) sec Sodium 136 L (137-145) mmol/L Carbon Dioxide 21 L (22-30) mmol/L BUN 23 H (9-20) mg/dL Creatinine 1.26 H (0.66-1.25) mg/dL Glucose 108 H (74-99) mg/dL Plasma Lactic Acid Jose 3.8 H* (0.7-2.0) mmol/L AST 83 H (17-59) U/L Creatine Kinase 2858 H* (55-170) U/L Urine Protein (Negative) Urine Ketones (Negative) Urine Blood (Negative) Hyaline Casts (0-2) /lpf Urine Mucus (None) /hpf
[2021-04-22 17:13] LABS: Amphetamine Screen,Urine Not Detected (NotDetected); Barbiturate Screen,Urine Not Detected (NotDetected); Benzodiazepines Screen,Urine Not Detected (NotDetected); Cocaine Screen,Urine Not Detected (NotDetected); Methadone Screen, Urine Not Detected (NotDetected); Opiate Screen,Urine Not Detected (NotDetected); Oxycodone Screen, Urine Not Detected (NotDetected); Phencyclidine Screen,Urine Not Detected (NotDetected); Tricyclic Antidepressant,Urine Not Detected (NotDetected); Urn Cannabinoid Scrn Detected (NotDetected)
[2021-04-22] MEDS ORDERED: PNEUMONIA PROTOCOL UTILIZED 1 EACH MISC PO PRN (17:34)
[2021-04-22] MEDS ORDERED: AZITHROMYCIN 500 MG in SODIUM CHLORIDE 0.9% 250 ML IVPB STA (17:34)
[2021-04-22] MEDS ORDERED: SODIUM CHLORIDE 0.9% 1,000 ML IV SCH (17:45)
[2021-04-22] MEDS: SODIUM CHLORIDE 0.9% 1,000 ML IV SCH (18:00)
--- NOTE | 2021-04-22 18:02 | CT ---
EXAMINATION TYPE: CT chest angio for PE CT DLP: 694.8 mGycm, Automated exposure control for dose reduction was used. DATE OF EXAM: 04/22/2021 5:44 PM COMPARISON: Chest radiograph 11/14/2011 and 04/22/2021. CLINICAL INDICATION:Male, 50 years old with history of PE; PHH, elevated d-dimer TECHNIQUE/CONTRAST: CTA scan of the thorax is performed with IV Contrast, patient injected with 100 mL of Isovue 370, pul monary embolism protocol. MIP images are created and reviewed. FINDINGS: Pulmonary Artery: There is no evidence for a central filling defect within the pulmonary vasculature to suggest acute pulmonary embolism. Limited evaluation of the segmental and subsegmental branches se condary to motion. The pulmonary artery is of normal size. Lungs/Pleura: Artifact limits evaluation of lung parenchyma slightly. There is bulla and blebs seen t hroughout the lung apices worse on the right. Centrilobular emphysema component is also present. No f ocal consolidation, pneumothorax or pleural effusion. Thickening of the minor fissure on the right is noted. Airway: Patent and grossly unremarkable. Heart: Within normal limits for size. Vasculature: No evidence of aortic aneurysm. Mediastinum: No gross evidence of adenopathy. Musculoskeletal: No acute osseous abnormalities Soft Tissues: Unremarkable. Lower neck: No significant findings. Upper Abdomen: Left renal cyst. Small splenule is present. IMPRESSION: 1. No evidence of central pulmonary embolism. Limited evaluation of the segmental and subsegmental br anches. 2. Paraseptal emphysematous changes with multiple bulla present in the upper lobes, right greater matthew n left.
[2021-04-22] MEDS ORDERED: IPRATROPIUM 0.5 MG/2.5 ML NEBU INHALATION SCH (20:00)
[2021-04-22] MEDS: FORMOTEROL FUMARATE 20 MCG/2 ML NEBU INHALATION SCH (20:05)
[2021-04-22] MEDS: IPRATROPIUM-ALBUTEROL 3 ML NEB INHALATION SCH (20:05)
[2021-04-23] MEDS: HEPARIN SODIUM,PORCINE/PF 5,000 UNIT/0.5 ML SYRINGE SQ SCH ×2 (00:32→09:06)
[2021-04-23] MEDS: SODIUM CHLORIDE 0.9% 1,000 ML IV SCH (06:33)
--- NOTE | 2021-04-23 08:01 | XR ---
EXAMINATION TYPE: XR chest 1V portable DATE OF EXAM: 04/23/2021 Comparison: 04/22/2021 Clinical History: 50-year-old male pneumonia Findings: Spinal stimulator ray centered along the mid to lower thoracic spinal canal. Heart normal size. Hyper inflation. Emphysematous change with suggestion of some upper lung bulla. Mild patchy density in the periphery of the right lower lung. No pleural effusion. Impression: COPD and upper lung bullous change. Some patchy peripheral right lower lung density has developed. Ea rly pneumonia not excluded.
[2021-04-23] MEDS ORDERED: ATORVASTATIN 40 MG TAB PO SCH (09:00)
[2021-04-23] MEDS ORDERED: AZITHROMYCIN 500 MG in SODIUM CHLORIDE 0.9% 250 ML IVPB SCH (09:00)
[2021-04-23] MEDS ORDERED: AZITHROMYCIN 500 MG TAB PO SCH (09:00)
[2021-04-23] MEDS ORDERED: FLUTICASONE 50MCG/SPRAY NASAL 16GM EA NOSTRIL SCH (09:00)
[2021-04-23] MEDS: IPRATROPIUM-ALBUTEROL 3 ML NEB INHALATION SCH ×3 (09:42→16:17)
[2021-04-23] MEDS: FORMOTEROL FUMARATE 20 MCG/2 ML NEBU INHALATION SCH (09:43)
[2021-04-23 09:46] VITALS: RESP 18
--- NOTE | 2021-04-23 12:04 | P.DS ---
Providers Date of admission: 04/22/21 17:34 Attending physician: Lane Tejada Primary care physician: Kristan Costa [facility] Course: 50-year-old male was a found on the floor with decreased response to the hospital. Patient is awake alert patient doesn't talk which is intentional. Because of which I am unable to assess his orientation although patient is found to have fever right posterior lung field infiltrate along with leukocytosis. Patient is a mildly elevated the CK up to 2000 without any evidence of rhabdomyolysis. It appears patient has been taking Bactrim at home. Patient has elevated creatinine up to 1.4 with mild hyponatremia. Which can be secondary to Bactrim. 04/23/2021 Patient is clinically doing well today patient there is very pleasant today. Patient states he smokes about 14 joint the day probably there is a the reason for his behavior and mental issues. Patient says he was not talking to anyone yesterday which was intentional. Patient presently clinically doing well very pleasant. Counseling regarding cutting down on marijuana. Patient did have fever which is believed to be secondary to pneumonia although computed tomography scan did not show any evidence of pneumonia. Patient is being treated with Bactrim for cellulitis of the right lower extremity patient the doesn't have any history of MRSA in the past. Patient has mild worsening in creatinine which can be false elevation secondary to Bactrim was also hyponatremic because of this to reasons I cannot discharge him on Bactrim. Patient will be discharged on Ceftin which helpsstrep cellulitis and will be discharged on doxycycline as well which will be helpful if there is any MRSA. Will be evaluated with physical therapy and occupational therapy before discharge. not requiring any antihypertensive medication may require it as an outpatient concerning his poor renal function which is this probably secondary to Bactrim and also hypotension patient not be discharged on continued on TREMAINE inhibitor can be restarted if needed as an outpatient. PHYSICAL EXAMINATION: GENERAL: The patient is alert and talk much, not in any acute distress. Well developed, well nourished. HEENT: Pupils are round and equally reacting to light. EOMI. No scleral icterus. No conjunctival pallor. Normocephalic, atraumatic. No pharyngeal erythema. No thyromegaly. CARDIOVASCULAR: S1 and S2 present. No murmurs, rubs, or gallops. PULMONARY: Chest is clear to auscultation, no wheezing or crackles. ABDOMEN: Soft, nontender, nondistended, normoactive bowel sounds. No palpable organomegaly. MUSCULOSKELETAL: No joint swelling or deformity. EXTREMITIES: No cyanosis, clubbing, or pedal edema. NEUROLOGICAL: Gross neurological examination did not reveal any focal deficits. SKIN: No rashes. Assessment and plan -Sepsis is a possibility a cannot rule out although he associates not evident possibility that cellulitis is a source of sepsis is low.no evidence of pneumonia -Hyponatremia secondary to Bactrim and hypokalemia Lactic acidosis secondary to assessment 1 dehydration -Elevated CK secondary to muscle inflammation from being on the floor for long time. -Acute renal failure: Elevated creatinine can be a false elevation secondary to Bactrim and hyponatremia secondary to Bactrim as well -COPD without any acute exacerbation Plan - Discharge Summary Discharge Rx Participant: No New Discharge Prescriptions: New Doxycycline Monohydrate [Monodox] 100 mg PO Q12HR #10 cap Albuterol Inhaler [Ventolin Hfa Inhaler] 2 puff INHALATION RT-QID PRN #18 gm PRN Reason: Shortness Of Breath Or Wheezing Cefuroxime Axetil [Ceftin] 500 mg PO BID 5 Days #10 tab Famotidine [Pepcid] 20 mg PO BID #30 tablet Continue Fluticasone Nasal Cameron [Flonase Nasal Cameron] 1 spray EA NOSTRIL DAILY Tiotropium Br/Olodaterol HCl [Stiolto Respimat Inhal Cameron] 2 puff INHALATION RT-DAILY Atorvastatin Calcium [Lipitor] 40 mg PO DAILY Discontinued Sulfamethox-Tmp 800-160Mg [Bactrim DS 800-160 mg] 1 tab PO BID Ibuprofen [Motrin] 800 mg PO TID-W/MEALS PRN PRN Reason: Pain Lisinopril [Prinivil] 10 mg PO DAILY Discharge Medication List Atorvastatin Calcium [Lipitor] 40 mg PO DAILY 04/22/21 [History] Fluticasone Nasal Cameron [Flonase Nasal Cameron] 1 spray EA NOSTRIL DAILY 04/22/21 [History] Tiotropium Br/Olodaterol HCl [Stiolto Respimat Inhal Cameron] 2 puff INHALATION RT-DAILY 04/22/21 [History] Albuterol Inhaler [Ventolin Hfa Inhaler] 2 puff INHALATION RT-QID PRN #18 gm 04/23/21 [Rx] Cefuroxime Axetil [Ceftin] 500 mg PO BID 5 Days #10 tab 04/23/21 [Rx] Doxycycline Monohydrate [Monodox] 100 mg PO Q12HR #10 cap 04/23/21 [Rx] Famotidine [Pepcid] 20 mg PO BID #30 tablet 04/23/21 [Rx] Follow up Appointment(s)/Referral(s): Kristan Ballard III, MD [Primary Care Provider] - 3 Days Discharge Disposition: HOME SELF-CARE
[2021-04-23 13:13] VITALS: BP 111/67; TEMP 99.2
[2021-04-23 16:30] VITALS: PULSE 98
== END 2021-04-23 17:02 | disposition home or self-care (01) | DRG 872 ==
LOC: EC 14:10 → 3SCARD 17:34
PROVIDERS: ADMIT Internal Medicine; ATTEND Internal Medicine
DX: A41.9 Sepsis, unspecified organism (principal); L03.115 Cellulitis of right lower limb; N17.9 Acute kidney failure, unspecified; E87.2 Acidosis; E87.1 Hypo-osmolality and hyponatremia; Z20.822 Contact with and (suspected) exposure to COVID-19; J44.9 Chronic obstructive pulmonary disease, unspecified; R74.8 Abnormal levels of other serum enzymes; T36.8X5A Adverse effect of other systemic antibiotics, initial encounter; E86.0 Dehydration; E87.6 Hypokalemia; F17.210 Nicotine dependence, cigarettes, uncomplicated; E87.70 Fluid overload, unspecified; R41.82 Altered mental status, unspecified; M54.9 Dorsalgia, unspecified; Z79.899 Other long term (current) drug therapy; Z96.82 Presence of neurostimulator; Z79.2 Long term (current) use of antibiotics; Z71.51 Drug abuse counseling and surveillance of drug abuser
CPT/HCPCS: 36415; 70450; 71045; 71046; 71275; 80053; 80306; 80320; 81001; 82140; 82550; 83605; 84145; 84484; 85025; 85379; 85610; 85730; 87040; 87635; 93005; 94640; 96361; 96374; 96375; 99285

== ENCOUNTER → 2022-03-04 | Outpatient (CLI) | payer MEDICARE ==
--- NOTE | 2022-03-04 10:21 | XR ---
EXAMINATION TYPE: XR chest 2V DATE OF EXAM: 03/04/2022 COMPARISON: 04/23/2021 INDICATION: Pneumonia TECHNIQUE: Frontal and lateral views of the chest are obtained. FINDINGS: The heart size is normal. The pulmonary vasculature is normal. The lungs are clear. There is hyperinflation flattening the diaphragms compatible with COPD. Focal e ventration of the right hemidiaphragm may be present. Stimulator leads are in the mid thoracic region . IMPRESSION: 1. No acute pulmonary process.
== END | disposition home or self-care (01) ==
LOC: RADXRMAIN 09:47
PROVIDERS: ATTEND Family Medicine
DX: J18.9 Pneumonia, unspecified organism (principal)
CPT/HCPCS: 71046